=== PATIENT | female | born 1945 | race Caucasian/White ===

== ENCOUNTER 2021-02-18 10:43 | Outpatient (CLI) | payer MEDICARE, SELFPAY ==
--- NOTE | ~2021-02-18 | MR_ITS ---
EXAMINATION: MR lumbar spine wo/w con DATE: 02/18/2021 12:17 INDICATION: Lumbar spinal stenosis. TECHNIQUE: Magnetic resonance imaging (MRI) of the lumbar spine was performed without and with 20 mL MultiHance intravenous contrast. Sequences included sagittal T2-weighted FSE, sagittal T2-weighted FS FSE, and sagittal and axial T1-weighted FSE. Postcontrast sequences included axial T2-weighted FSE a nd axial and sagittal T1-weighted FS FSE. COMPARISON: Lumbar spine MRI 08/25/2017 FINDINGS: There is 7 mm anterolisthesis of L4 on L5. Vertebral body heights are normal. There is mild ly decreased disc height at L1-L2 and L2-L3, moderately decreased disc height at 3-L4 and L4-L5, and mildly decreased disc at L5-S1. There is ligamentum flavum hypertrophy at all lumbar disc levels. The distal spinal cord signal intensity is normal. The conus medullaris is at L1. The following disc lev els are specifically discussed: L1-L2: The disc is bulging. There is mild bilateral facet joint osteoarthritis. There is no neural fo raminal stenosis. There is mild central canal stenosis. L2-L3: The disc is bulging. There is severe right and mild left facet joint osteoarthritis. There is mild bilateral neural foraminal stenosis. There is mild central canal stenosis. L3-L4: The disc is bulging and has an annular fissure. There is severe bilateral facet joint osteoart hritis. There is moderate bilateral neural foraminal stenosis. There is mild central canal stenosis. There is moderate stenosis of the lateral recesses. L4-L5: The disc is bulging with superimposed right central extrusion. There is severe bilateral facet joint osteoarthritis. There is moderate right and mild left neural foraminal stenosis. There is mode rate central canal stenosis. L5-S1: The disc does not extend beyond the endplate margin. There is severe bilateral facet joint ost eoarthritis. There is mild right and moderate left neural foraminal stenosis. There is mild central c anal stenosis. IMPRESSION: 1. Moderate lumbar spondylosis, stable from 08/25/2017. Reviewed, dictated and finalized at location A.
[2021-02-18 11:38] LABS: Estimated Glomerular Filt Rate > 60
== END 2021-02-18 10:44 | disposition home or self-care (01) ==
PROVIDERS: PCP Family Medicine; Visit Provider Family Medicine
DX: M48.062 Spinal stenosis, lumbar region with neurogenic claudication (principal); M47.896 Other spondylosis, lumbar region
CPT/HCPCS: 72158; A9577

== ENCOUNTER 2022-02-04 17:20 | Emergency (ER) | payer MEDICARE, SELFPAY ==
--- NOTE | 2022-02-04 17:22 | ED.UPPEXIN ---
HPI - Extremity Injury (Upper) General Chief Complaint: Skin/Abscess/Foreign Body Stated Complaint: right arm swollen Time Seen by Provider: 02/04/22 17:23 History of Present Illness HPI narrative: Patient is a 76-year-old female who presents the urgent care with complaints of right arm swelling and pain. Patient states that it started on the forearm approximately 1 week ago and now has became larger and more painful. Patient states that several doctors since Tuesday have told her to get it checked out but none of them treated her infection. Patient states that if she is not on their schedule they will not treat her infection. States that she goes to Dr. Perri Cabrera and they would only see her for her urinary tract infection when she was there the other day. Patient is on 1 more day of Macrobid for her UTI. Patient denies of any fevers, nausea or vomiting. Patient has not done anything [id number] for her right arm pain and swelling. Denies of any trauma or injury to the arm. No other complaints. No acute distress noted. Patient aware of the plan of care. Some parts of this dictation were generated by voice recognition software and may contain typographical and/or grammatical inaccuracies. Related Data Home Medications Medication Instructions Recorded Confirmed warfarin 5 mg tablet 5 mg PO QTUTHSASU 06/28/19 02/04/22 atorvastatin 10 mg tablet 10 mg PO DAILY 02/17/21 02/04/22 diltiazem HCl 360 mg capsule,24 360 mg PO DAILY 02/17/21 02/04/22 hr,extended release oxycodone-acetaminophen 5 mg-325 1 tablet PO Q8H 10/23/21 02/04/22 mg tablet cyclobenzaprine 5 mg tablet 5 mg PO TID PRN Pain, Mild 11/17/21 02/04/22 Allergies Allergy/AdvReac Type Severity Reaction Status Date / Time Penicillins Allergy Mild Dyspnea / Verified 02/04/22 17:25 SOB Latex, Natural Rubber Allergy Unknown SKIN Verified 02/04/22 17:25 IRRITATION sulfamethoxazole AdvReac Unknown Unknown Verified 02/04/22 17:25 [From Bactrim] trimethoprim [From Bactrim] AdvReac Unknown Unknown Verified 02/04/22 17:25 Review of Systems Review of Systems: CONSTITUTIONAL: Denies fever, chills, or sweats. EYES: Denies visual changes, redness, or discharge. ENT: Denies rhinorrhea, congestion, sore throat, or otalgia. CARDIOVASCULAR: Denies chest pain, palpitations, or edema. RESPIRATORY: Denies cough or dyspnea. GASTROINTESTINAL: Denies abdominal pain, nausea, vomiting, or diarrhea. GENITOURINARY: Denies dysuria or hematuria. SKIN: Reports of redness and swelling to the right forearm MUSCULOSKELETAL: Denies back pain, joint pain, or myalgia. NEUROLOGIC: Denies headache, numbness, or weakness. All other systems reviewed are negative, except as documented in HPI. [facility] Past Medical History Medical History (Updated 02/04/22 @ 17:54 by BRITTANY Martinez) Asthma Laceration of finger Other custodial (current) drug therapy Primary osteoarthritis of both knees TIA (transient ischemic attack) Family History Family History Father Diabetes mellitus Hypertension, Onset Age: 80 Cerebrovascular accident, Onset Age: 80 Mother Family history of malignant neoplasm Family history of alcoholism Family history of lung cancer, Onset Age: 60 Family history of malignant neoplasm of esophagus, Onset Age: 60 Other Asthma Depression Family history of mental disorder Social History Social History Alcohol intake: never Substance use type: does not use Gender identity (if verbalized by the patient): Female Spiritual care concerns: No Comments At the time of my signature, I reviewed and agree with the nursing past medical, surgical, social, and family history. There is no relevant family history pertinent to the patient complaint. Exam Narrative: GENERAL: This is a well-nourished, well-developed
[2022-02-04 17:27] VITALS: BP 107/56; PULSE 89; RESP 18; TEMP 36.6; O2SAT 95
[2022-02-04 17:34] VITALS: BP 107/56; PULSE 89; RESP 18; TEMP 36.6; O2SAT 95
== END 2022-02-04 18:05 | disposition home or self-care (01) ==
PROVIDERS: Emergency Provider Nurse Practitioner Family; PCP Family Medicine
DX: L03.113 Cellulitis of right upper limb (principal); J45.909 Unspecified asthma, uncomplicated; M17.0 Bilateral primary osteoarthritis of knee; Z86.73 Personal history of transient ischemic attack (TIA), and cerebral infarction without residual deficits; Z79.01 Long term (current) use of anticoagulants
CPT/HCPCS: 99213; G0463

== ENCOUNTER 2022-06-24 14:54 | Outpatient (CLI) | payer MEDICARE, SELFPAY ==
[2022-06-24 19:18] LABS: Basophils Percent Auto 0.4 % (0.2-1.2); Eosinophils Absolute Auto 0.2 K/mm3 (0-0.3); Eosinophils Percent Auto 1.8 % (0-4.4); Hematocrit 38.4 % (37.0-47.0); Hemoglobin 11.9 g/dL (12.0-15.0); Immature Granulocyte Absolute 0.02 K/mm3 (0.00-0.031); Immature Granulocyte Percent A 0.2 % (0-0.5); Lymphocytes Absolute Auto 2.68 K/mm3 (0.9-3.2); Lymphocytes Percent Auto 26.1 % (18.3-44.2); Mean Corpuscular Hemoglobin 30.8 pg (26-34); Mean Corpuscular Volume 99.5 fl (80-100); Mean Platelet Volume 11.3 fl (7.4-10.4); Monocytes Absolute Auto 0.7 K/mm3 (0.1-0.6); Monocytes Percent Auto 7.1 % (2.6-8.5); Neutrophils Absolute Auto 6.6 K/mm3 (1.3-6.7); Neutrophils Percent Auto 64.4 % (45.5-73.1); Platelet Count Result 284 k/mm3 (150-375); Red Blood Count 3.86 M/mm3 (4.2-5.4); Red Cell Distribution Width 12.6 % (11.5-14.5); White Blood Count 10.3 K/mm3 (4.5-10.0)
[2022-06-24 19:24] LABS: Hemoglobin A1C 6.4 % (<5.7)
[2022-06-24 19:32] LABS: Alanine Aminotransferase 19 U/L (6-35); Albumin Level 4.3 g/dL (3.5-5.1); Alkaline Phosphatase 119 U/L (38-126); Anion Gap 12 mmol/L (8-16); Aspartate Amino Transferase 37 U/L (14-36); Bilirubin,Total 0.2 mg/dL (0.2-1.3); Blood Urea Nitrogen 20 mg/dL (7-17); Calcium 9.3 mg/dL (8.4-10.2); Carbon Dioxide 28 mmol/L (22-30); Chloride 103 mmol/L (98-107); Cholesterol 189 mg/dL (0-200); Estimated Glomerular Filt Rate > 60; Glucose 123 mg/dL (65-110); HDL Direct 72 mg/dL; Potassium 4.1 mmol/L (3.4-5.0); Sodium 143 mmol/L (137-145); Triglycerides 93 mg/dL (<150)
[2022-06-24 19:43] LABS: LDL Cholesterol Direct 66 mg/dL
[2022-06-28 17:04] LABS: Vitamin D 1,25 (OH)2 Total 19 pg/mL (18-72); Vitamin D2 1,25 (OH)2 <8 pg/mL; Vitamin D3 1,25 (OH)2 19 pg/mL
== END 2022-06-24 14:55 | disposition home or self-care (01) ==
PROVIDERS: PCP Family Medicine; Visit Provider Physician Assistant
DX: E78.2 Mixed hyperlipidemia (principal); F41.8 Other specified anxiety disorders; I10 Essential (primary) hypertension; I48.91 Unspecified atrial fibrillation; R53.83 Other fatigue; R73.03 Prediabetes; Z79.899 Other long term (current) drug therapy; E55.9 Vitamin D deficiency, unspecified; M25.559 Pain in unspecified hip
CPT/HCPCS: 36415; 80053; 80061; 82652; 83036; 84443; 85025

== ENCOUNTER 2022-07-05 16:28 | Outpatient (CLI) | payer MEDICARE, SELFPAY ==
[2022-07-05 17:34] LABS: SARS-CoV-2 RNA PCR Positive
== END 2022-07-05 16:29 | disposition home or self-care (01) ==
LOC: ANHLAB 16:31
PROVIDERS: PCP Family Medicine; Visit Provider Physician Assistant
DX: U07.1 COVID-19 (principal)
CPT/HCPCS: U0003; U0005

== ENCOUNTER 2022-08-30 12:12 | Outpatient (RCR) | payer MEDICARE, SELFPAY ==
[2022-06-24 19:28] LABS: INR 3.9; Prothrombin Time 37.1 Seconds (11.1-14.7)
[2022-06-28 19:10] LABS: INR 2.3; Prothrombin Time 24.2 Seconds (11.1-14.7)
[2022-07-20 19:33] LABS: INR 2.8; Prothrombin Time 28.9 Seconds (11.1-14.7)
[2022-08-30 17:07] LABS: INR 2.6; Prothrombin Time 26.6 Seconds (11.1-14.7)
== END 2022-09-22 23:59 | disposition home or self-care (01) ==
LOC: ANHGOSHLAB 12:12
PROVIDERS: PCP Family Medicine
DX: I48.91 Unspecified atrial fibrillation (principal); I10 Essential (primary) hypertension; E78.2 Mixed hyperlipidemia; E55.9 Vitamin D deficiency, unspecified; R73.03 Prediabetes; R53.83 Other fatigue; F41.8 Other specified anxiety disorders; Z79.899 Other long term (current) drug therapy
CPT/HCPCS: 36415; 80053; 80061; 82652; 83036; 84443; 85025; 85610

== ENCOUNTER 2022-10-07 14:27 | Outpatient (RCR) | payer MEDICARE, SELFPAY ==
[2022-10-07 19:46] LABS: INR 2.7; Prothrombin Time 27.7 Seconds (11.1-14.7)
== END 2023-01-05 23:59 | disposition home or self-care (01) ==
LOC: ANHGOSHLAB 14:27
PROVIDERS: PCP Family Medicine
DX: I48.91 Unspecified atrial fibrillation (principal)
CPT/HCPCS: 36415; 85610

== ENCOUNTER 2022-12-27 21:10 | Emergency (ER) | payer MEDICARE, SELFPAY ==
--- NOTE | ~2022-12-27 | XR_ITS ---
EXAM: XR shoulder LT min 2V, XR humerus LT DATE: 12/27/2022 22:03 HISTORY: Left arm pain . COMPARISON: None available. FINDINGS: Decreased mineralization. No fracture or dislocation. No lytic or blastic lesion. Mild AC joint and elbow osteoarthritis. Severe glenohumeral joint osteoarthritis. No erosion or periosteal ch herbie. Soft tissues within normal limits. IMPRESSION: No acute osseous finding the left shoulder or humerus. Reviewed, dictated and finalized at location K. IMPRESSION: No acute osseous finding the left shoulder or humerus.
[2022-12-27 21:16] VITALS: BP 144/53; PULSE 108; RESP 22; TEMP 37.3; O2SAT 96
[2022-12-27 23:19] VITALS: BP 137/62; PULSE 98; RESP 20; O2SAT 100
--- NOTE | 2022-12-27 23:51 | PC.NURSE ---
Pt approached desk and asks I'm leaving, is there something for me to sign? This RN informed pt that there is nothing for her to sign since she is leaving before she saw an ED provider. Instructed pt to return to ED if her pain worsens or she develops any new symptoms. Instructed pt to contact her PCP in the morning. Pt verbalized understanding and ambulated out of department with steady gait.
== END 2022-12-27 23:51 | disposition left against medical advice (07) ==
PROVIDERS: Emergency Provider Preventive Medicine Aerospace Medicine; PCP Family Medicine
DX: M79.602 Pain in left arm (principal)
CPT/HCPCS: 73030; 73060; 99199

== ENCOUNTER 2023-01-31 16:59 | Emergency (ER) | payer MEDICARE, SELFPAY ==
[2023-01-31 17:07] VITALS: BP 121/58; PULSE 87; RESP 16; TEMP 36.8; O2SAT 97
--- NOTE | 2023-01-31 17:26 | ED.SKABFB ---
HPI - Skin/Abscess/Foreign Bdy General Chief complaint: Skin/Abscess/Foreign Body Stated complaint: Laceration To Forehead History of Present Illness HPI narrative: Earlier this afternoon patient was stepping over her dog and dog woke up and she tripped and fell hitting her head on the kitchen floor. Patient denies any loss of consciousness the patient does have a laceration above her left eyebrow and patient does take a blood thinner daily. Patient denies any other injuries. Related Data Home Medications Medication Instructions Recorded Confirmed warfarin 5 mg tablet 5 mg PO QTUTHSASU 06/28/19 01/31/23 atorvastatin 10 mg tablet 10 mg PO DAILY 02/17/21 01/31/23 diltiazem HCl 360 mg capsule,24 360 mg PO DAILY 02/17/21 01/31/23 hr,extended release oxycodone-acetaminophen 5 mg-325 1 tablet PO Q8H 10/23/21 01/31/23 mg tablet Allergies Allergy/AdvReac Type Severity Reaction Status Date / Time Penicillins Allergy Mild Dyspnea / Verified 01/31/23 17:01 SOB Latex, Natural Rubber Allergy Unknown SKIN Verified 01/31/23 17:01 IRRITATION sulfamethoxazole AdvReac Unknown Unknown Verified 01/31/23 17:01 [From Bactrim] trimethoprim [From Bactrim] AdvReac Unknown Unknown Verified 01/31/23 17:01 Review of Systems Review of Systems: CONSTITUTIONAL: Denies chills, or sweats. Reports fever and generalized body aches EYES: Denies visual changes, redness, or discharge. ENT: Denies otalgia. Reports nasal congestion runny nose and sore throat CARDIOVASCULAR: Denies chest pain, palpitations, or edema. RESPIRATORY: Denies dyspnea. Reports occasional cough GASTROINTESTINAL: Denies abdominal pain, nausea, vomiting, or diarrhea. GENITOURINARY: Denies dysuria or hematuria. SKIN: Denies rash or itching. MUSCULOSKELETAL: Denies back pain, joint pain, or myalgia. Reports generalized body aches NEUROLOGIC: Denies headache, numbness, or weakness. PSYCHIATRIC: Denies anxiety or depression. 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 Primary osteoarthritis of both knees TIA (transient ischemic attack) Family History Family History Father Diabetes mellitus Hypertension, Onset Age: 80 Cerebrovascular accident, Onset Age: 80 Mother Family history of malignant neoplasm Family history of alcoholism Family history of lung cancer, Onset Age: 60 Family history of malignant neoplasm of esophagus, Onset Age: 60 Other Asthma Depression Family history of mental disorder Social History Social History Smoking status: Never smoker Alcohol intake: never Substance use: never Substance use type: does not use Lack of Transportation: No Lack of Food: Never True Current Housing: I Have Housing Concerned About Future Housing: No Difficulty Paying Gas/Electric Bills: No Difficulty Paying for Meds: No Currently Unemployed: No Education: High School Diploma/GED Difficulty w/ Childcare or Family Care: No Occupation/Education: retired Gender identity (if verbalized by the patient): Female Spiritual care concerns: No Comments At time of signature, agree with nursing past medical, surgical, social and family history. There is no relevant family history pertinent to the presenting complaint Exam Narrative: The patient is a well-developed, well-nourished in no acute distress. SKIN: Skin is warm and dry without erythema, swelling or exudate. There is good turgor. No tenting. HEAD: Atraumatic. Normocephalic. No temporal or scalp tenderness. 2 cm laceration above left eyebrow no bleeding at present EYES: Moist and bright. Sclera and conjunctivae normal. No discharge. PERRLA. Extraocular motions intact. Gross visual acuity intact. EARS: Pinna
== END 2023-01-31 17:31 | disposition short-term general hospital (02) ==
PROVIDERS: Emergency Provider Nurse Practitioner Family; PCP Family Medicine
DX: S09.90XA Unspecified injury of head, initial encounter (principal); S01.81XA Laceration without foreign body of other part of head, initial encounter; W01.0XXA Fall on same level from slipping, tripping and stumbling without subsequent striking against object, initial encounter; J45.909 Unspecified asthma, uncomplicated; M17.0 Bilateral primary osteoarthritis of knee; Z86.73 Personal history of transient ischemic attack (TIA), and cerebral infarction without residual deficits; Z79.01 Long term (current) use of anticoagulants
CPT/HCPCS: 99212; G0463

== ENCOUNTER 2023-01-31 18:02 | Emergency (ER) | payer MEDICARE, SELFPAY ==
--- NOTE | ~2023-01-31 | CT_ITS ---
EXAMINATION: CT brain wo con DATE: 01/31/2023 19:07 INDICATION: head injury . TECHNIQUE: Computed tomography (CT) of the head was performed without intravenous contrast. The mA wa s adjusted according to patient size. Iterative reconstruction technique was employed. The dose-lengt h product was 605.33 mGy-cm. COMPARISON: MR brain 04/02/2016. FINDINGS: No acute intracranial hemorrhage or extra-axial fluid collection. No hydrocephalus, mass, or herniation. No acute ischemic infarct. Unremarkable dural venous sinus attenuation. No acute osseous abnormality. The aerated spaces are clear. Mild atrophy and chronic white matter change. Minimal atherosclerotic intracranial calcification. IMPRESSION: No acute intracranial process. Reviewed, dictated and finalized at location K.
--- NOTE | ~2023-01-31 | CT_ITS ---
EXAMINATION: CT facial & cervical spine wo DATE: 01/31/2023 19:09 INDICATION: facial and neck pain TECHNIQUE: Computed tomography (CT) of the maxillofacial region and cervical spine was performed with out intravenous contrast. Automated exposure control and iterative reconstruction technique were empl oyed. The dose-length product was 305.03 mGy-cm. COMPARISON: None FINDINGS: CERVICAL: Vertebral Body Alignment: Intact. Grade 1 anterolistheses at C2-3 and C3-4. Grade 2 anterolisthesis a t C3 4-5 and C5-6. Craniocervical and atlantoaxial alignment: Moderate degenerative change. Alignment intact. Osseous structures/fracture: No evidence of a lytic or blastic process in the visualized spine. No e vidence of acute fracture. Bilateral facet fusion at C4-5. Cervical soft tissues: The paraspinal soft tissues planes are maintained. Degenerative changes: Multilevel severe degenerative disc disease and facet arthropathy. Multilevel s evere bilateral neural foraminal narrowing. No severe central canal narrowing.. FACE: Soft Tissues: No significant superficial soft tissue swelling. Facial bones: No acute fracture. No lytic or blastic process. Eyes: The globes are intact. The soft tissue planes of the orbits are maintained. Paranasal Sinuses: The visualized aerated spaces are clear. Foreign Bodies: No radiopaque foreign bodies. Other Findings: None. IMPRESSION: No acute fracture detected in the cervical spine. 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 No acute facial bone fracture. Reviewed, dictated and finalized at location K.
[2023-01-31 18:13] VITALS: BP 125/73; PULSE 85; RESP 16; TEMP 36.6; O2SAT 97
[2023-01-31] MEDS: LIDOCAINE HCL 1% LOCAL INJ 10 ML VIAL INFILTRATE (19:01)
--- NOTE | 2023-01-31 19:45 | ED.GENADULT ---
HPI - General Adult General Chief complaint: Wound/Laceration Stated complaint: head injury, from urgent care Time Seen by Provider: 01/31/23 18:35 History of Present Illness HPI narrative: 77-year-old female presented the emergency department for evaluation after having a head injury. Patient reports that she tripped over her dog and fell striking her face. Patient denied loss of consciousness. Patient reports that her tetanus is up-to-date. Related Data Home Medications Medication Instructions Recorded Confirmed warfarin 5 mg tablet 5 mg PO QTUTHSASU 06/28/19 01/31/23 atorvastatin 10 mg tablet 10 mg PO DAILY 02/17/21 01/31/23 diltiazem HCl 360 mg capsule,24 360 mg PO DAILY 02/17/21 01/31/23 hr,extended release oxycodone-acetaminophen 5 mg-325 1 tablet PO Q8H 10/23/21 01/31/23 mg tablet Allergies Allergy/AdvReac Type Severity Reaction Status Date / Time Penicillins Allergy Mild Dyspnea / Verified 01/31/23 17:01 SOB Latex, Natural Rubber Allergy Unknown SKIN Verified 01/31/23 17:01 IRRITATION sulfamethoxazole AdvReac Unknown Unknown Verified 01/31/23 17:01 [From Bactrim] trimethoprim [From Bactrim] AdvReac Unknown Unknown Verified 01/31/23 17:01 Review of Systems Review of Systems: All systems reviewed & are unremarkable except as noted in HPI and below PMFSH Past Medical History Medical History Asthma Laceration of finger Other chcf (current) drug therapy Primary osteoarthritis of both knees TIA (transient ischemic attack) Family History Family History Father Diabetes mellitus Hypertension, Onset Age: 80 Cerebrovascular accident, Onset Age: 80 Mother Family history of malignant neoplasm Family history of alcoholism Family history of lung cancer, Onset Age: 60 Family history of malignant neoplasm of esophagus, Onset Age: 60 Other Asthma Depression Family history of mental disorder Social History Social History Smoking status: Never smoker Alcohol intake: never Substance use: never Substance use type: does not use Lack of Transportation: No Lack of Food: Never True Current Housing: I Have Housing Concerned About Future Housing: No Difficulty Paying Gas/Electric Bills: No Difficulty Paying for Meds: No Currently Unemployed: No Education: High School Diploma/GED Difficulty w/ Childcare or Family Care: No Occupation/Education: retired Gender identity (if verbalized by the patient): Female Spiritual care concerns: No Exam Narrative: APPEARANCE: Well appearing, no pain, no distress, well-nourished. HEAD: normocephalic, atraumatic. EYES: PERRLA/EOMI, conjunctivae clear. NOSE: Normal no drainage EARS:TMS clear with good light reflex. THROAT: Pharynx clear, no exudate. NECK: Supple. No adenopathy, no masses. RESPIRATORY: Airway patent, respirations nonlabored. Clear to auscultation bilaterally, no rales, rhonchi, wheezing. CARDIOVASCULAR: Regular rate and rhythm without murmurs rubs or gallops. ABDOMINAL: Soft, nontender, nondistended, normal bowel sounds MUSCULOSKELETAL: Moves all extremities. Strength/ROM intact, No edema, No calf tenderness. NEURO: Alert. Cranial nerves II through XII intact. Good gait. Good coordination SKIN: 3 cm laceration over left eyebrow Course Course Emergency Course: 77-year-old female presented emerged department for evaluation for a head injury and facial laceration. Patient had negative head face and cervical spine CTs. Patient's tetanus was up-to-date. Patient's laceration was repaired as described in the procedure note. Both patient and family were updated on the results of the work-up and wound care. All questions concerns were addressed and patient family were comfortable with the plan for discharge and cl
== END 2023-01-31 20:05 | disposition home or self-care (01) ==
PROVIDERS: Emergency Provider Emergency Medicine; PCP Family Medicine
DX: S01.81XA Laceration without foreign body of other part of head, initial encounter (principal); Z79.01 Long term (current) use of anticoagulants; Z79.891 Long term (current) use of opiate analgesic; Z86.73 Personal history of transient ischemic attack (TIA), and cerebral infarction without residual deficits; W01.0XXA Fall on same level from slipping, tripping and stumbling without subsequent striking against object, initial encounter
CPT/HCPCS: 12013; 70450; 70486; 72125; 99284

== ENCOUNTER 2023-02-03 14:23 | Outpatient (RCR) | payer MEDICARE, SELFPAY ==
[2022-11-19 18:33] LABS: INR 2.4; Prothrombin Time 25.2 Seconds (11.1-14.7)
[2023-01-06 18:28] LABS: INR 1.8; Prothrombin Time 22.4 Seconds (11.1-14.7)
[2023-02-03 19:54] LABS: INR 2.2; Prothrombin Time 25.9 Seconds (11.1-14.7)
== END 2023-02-17 23:59 | disposition home or self-care (01) ==
LOC: ANHGOSHLAB 14:23
PROVIDERS: PCP Family Medicine
DX: I48.92 Unspecified atrial flutter (principal)
CPT/HCPCS: 36415; 85610

== ENCOUNTER 2023-03-25 15:50 | Outpatient (CLI) | payer MEDICARE, SELFPAY ==
[2023-03-25 18:34] LABS: INR 1.4; Prothrombin Time 17.7 Seconds (11.1-14.7)
== END 2023-03-25 15:51 | disposition home or self-care (01) ==
LOC: ANHGOSHLAB 15:52
PROVIDERS: PCP Family Medicine
DX: I48.92 Unspecified atrial flutter (principal)
CPT/HCPCS: 36415; 85610

== ENCOUNTER 2023-04-28 07:18 | Outpatient (CLI) | payer MEDICARE, SELFPAY ==
--- NOTE | ~2023-04-28 | US_ITS ---
EXAMINATION: US venous doppler LE RT DATE: 04/28/2023 08:16 INDICATION: Right lower limb swelling TECHNIQUE: Gustafson scale images without and with compression and Doppler images of the right lower extre mity veins were obtained. COMPARISON: None FINDINGS: The right common femoral vein, profunda femoral vein, femoral vein, popliteal vein, peronea l trunk, posterior tibial veins, and greater saphenous vein are patent. IMPRESSION: 1. Patent right lower extremity veins. No evidence of deep venous thrombosis. Reviewed, dictated and finalized at location D.
[2023-04-28 09:08] LABS: Basophils Absolute Auto 0.1 K/mm3 (0.0-0.1); Basophils Percent Auto 0.6 % (0.2-1.2); Eosinophils Absolute Auto 0.2 K/mm3 (0-0.3); Hematocrit 38.6 % (37.0-47.0); Hemoglobin 11.9 g/dL (12.0-15.0); Immature Granulocyte Absolute 0.02 K/mm3 (0.00-0.031); Immature Granulocyte Percent A 0.2 % (0-0.5); Lymphocytes Absolute Auto 2.42 K/mm3 (0.9-3.2); Lymphocytes Percent Auto 29.8 % (18.3-44.2); Mean Corpuscular HGB Conc 30.8 g/dl (32-36); Mean Corpuscular Hemoglobin 31.8 pg (26-34); Mean Corpuscular Volume 103.2 fl (80-100); Mean Platelet Volume 10.7 fl (7.4-10.4); Monocytes Absolute Auto 0.6 K/mm3 (0.1-0.6); Neutrophils Absolute Auto 4.8 K/mm3 (1.3-6.7); Neutrophils Percent Auto 59.4 % (45.5-73.1); Platelet Count Result 267 k/mm3 (150-375); Red Blood Count 3.74 M/mm3 (4.2-5.4); Red Cell Distribution Width 12.6 % (11.5-14.5); White Blood Count 8.1 K/mm3 (4.5-10.0)
[2023-04-28 09:19] LABS: Alanine Aminotransferase 19 U/L (6-35); Albumin Level 4.3 g/dL (3.5-5.1); Alkaline Phosphatase 112 U/L (38-126); Anion Gap 5 mmol/L (8-16); Aspartate Amino Transferase 27 U/L (14-36); Bilirubin,Total 0.3 mg/dL (0.2-1.3); Blood Urea Nitrogen 18 mg/dL (7-17); Calcium 9.2 mg/dL (8.4-10.2); Carbon Dioxide 28 mmol/L (22-30); Chloride 104 mmol/L (98-107); Cholesterol 193 mg/dL (0-200); Estimated Glomerular Filt Rate > 60; Glucose 98 mg/dL (65-110); HDL Direct 84 mg/dL; Hemoglobin A1C 6.1 % (<5.7); Potassium 4.1 mmol/L (3.4-5.0); Sodium 137 mmol/L (137-145); Triglycerides 71 mg/dL (<150)
[2023-04-28 09:30] LABS: LDL Cholesterol Direct 73 mg/dL
[2023-04-28 10:23] LABS: Hepatitis C Virus Antibody Negative (Negative)
== END 2023-04-28 07:19 | disposition home or self-care (01) ==
PROVIDERS: Family Medicine; PCP Family Medicine; Visit Provider Family Medicine
DX: R22.41 Localized swelling, mass and lump, right lower limb (principal); Z79.01 Long term (current) use of anticoagulants; F41.8 Other specified anxiety disorders; Z79.899 Other long term (current) drug therapy; E55.9 Vitamin D deficiency, unspecified; E78.2 Mixed hyperlipidemia; I10 Essential (primary) hypertension; Z11.59 Encounter for screening for other viral diseases; R73.03 Prediabetes; I48.91 Unspecified atrial fibrillation; E53.9 Vitamin B deficiency, unspecified
CPT/HCPCS: 36415; 80053; 80061; 82607; 83036; 85025; 86803; 93971

== ENCOUNTER 2023-07-13 13:30 | Outpatient (RCR) | payer MEDICARE, SELFPAY ==
[2023-04-22 19:16] LABS: INR 2.5; Prothrombin Time 29.2 Seconds (11.1-14.7)
[2023-05-19 18:59] LABS: INR 3.7
[2023-06-03 18:51] LABS: INR 2.3
[2023-07-13 19:22] LABS: INR 1.3; Prothrombin Time 17.3 Seconds (11.1-14.7)
== END 2023-07-21 23:59 | disposition home or self-care (01) ==
LOC: ANHGOSHLAB 13:30
PROVIDERS: Physician Assistant; PCP Family Medicine
DX: I48.92 Unspecified atrial flutter (principal); I10 Essential (primary) hypertension; E55.9 Vitamin D deficiency, unspecified; R73.03 Prediabetes; E78.2 Mixed hyperlipidemia; Z79.899 Other long term (current) drug therapy
CPT/HCPCS: 36415; 84443; 85610

== ENCOUNTER → 2023-10-10 13:09 | Outpatient (CLI) | payer MEDICARE, SELFPAY ==
--- NOTE | ~2023-10-10 | MR_ITS ---
EXAMINATION: MR orbits face neck wo con DATE: 10/10/2023 14:46 INDICATION: Soft tissue density in the medial inferior aspect of left orbit. TECHNIQUE: Magnetic resonance imaging (MRI) of the orbits was performed without intravenous contrast. COMPARISON: Head CT 01/31/2023, brain MRI 04/02/2016 FINDINGS: In the inferomedial left orbit, there is a 9 mm mass of increased T2-weighted signal intens ity. The mass abuts the inferior aspect of the medial rectus muscle at the distal myotendinous juncti on. The extraocular muscles are normal. The optic nerves are normal. There is leftward deviation of t he nasal septum. IMPRESSION: 1. 9 mm mass in the inferomedial left orbit, stable from 04/02/16. This finding is most likely a heman gioma or lymphangioma. Reviewed, dictated and finalized at location E. REPAIRER IMPRESSION: 1. 9 mm mass in the inferomedial left orbit, stable from 04/02/16. This finding is most likely a hemangioma or lymphangioma.
== END ==
PROVIDERS: Visit Provider Family Medicine
DX: H57.89 Other specified disorders of eye and adnexa (principal); R93.0 Abnormal findings on diagnostic imaging of skull and head, not elsewhere classified; M79.89 Other specified soft tissue disorders
CPT/HCPCS: 70540

== ENCOUNTER 2023-10-24 15:15 | Outpatient (RCR) | payer MEDICARE, SELFPAY ==
[2023-08-11 18:59] LABS: INR 2.8; Prothrombin Time 31.3 Seconds (11.1-14.7)
[2023-09-29 19:31] LABS: INR 2.9; Prothrombin Time 33.1 Seconds (11.1-14.7)
[2023-10-24 19:32] LABS: INR 2.7; Prothrombin Time 30.7 Seconds (11.1-14.7)
== END 2023-11-09 23:59 | disposition home or self-care (01) ==
LOC: ANHGOSHLAB 15:15
PROVIDERS: PCP Family Medicine
DX: I48.92 Unspecified atrial flutter (principal)
CPT/HCPCS: 36415; 85610

== ENCOUNTER 2023-10-27 13:54 | Outpatient (RCR) | payer MEDICARE, SELFPAY ==
--- NOTE | 2023-10-27 15:35 | STOPEVDC ---
Assessment and note entered by Tere Waller PRESS LOADER Thank you for referring Rossy Muller to [facility].? An evaluation has been completed. No further treatment is needed. Evaluation Information Assessment Status Evaluation Reported Pain Level Pain Score 0: Self Report Assessment ST Clinical Summary BEDSIDE SWALLOW EVALUATION Patient reports that she goes to her cousin's house for a meal on Sundays, her cousin noticed that patient has been complaining that food becomes stuck in her throat. When this occurs, patient reported that she feels that it if the bolus moves up, it would enter her airway and she would suffocate. If she waits long enough the feeling subsides, and it will clear but if she eats again too soon, it comes back. Patient also reported a rare to occasional feeling of food hanging up in the area of the esophagus but mostly feels it hangs up in her throat. When asked about using a liquid wash to clear pooled material, she stated that she feels the water just sits in the throat and does not do anything. She denied liquid spilling back into the mouth after taking a sip to clear. She reports that when she was younger, she had panic attacks, would have a dream that she was being choked and she would awaken and feel as if she were choking and she wonders if her difficulty swallowing is related to panic attacks. When asked about her vocal cords, patient stated that she feels her vocal cords are fine, that she can yell and speak and that she never is hoarse or has other signs of vocal cord dysfunction. Today the patient consumed justo crackers and water with no evidence of aspiration and no reports of food hanging up in the throat. When instructed to monitor her swallowing difficulties, i.e. a pattern, such as certain foods causing more trouble, patient reported the only pattern she has noticed is when she is consuming meals with her cousin when they are eating out. Therapist asked her about talking with food in her mouth and patient did admit to that bad habit but did state that she always cuts her food into small pieces and eats slowly.
== END 2023-10-28 12:39 | disposition home or self-care (01) ==
LOC: ANHST 13:54
PROVIDERS: PCP Family Medicine; Visit Provider Family Medicine
DX: J38.3 Other diseases of vocal cords (principal)
CPT/HCPCS: 92524

== ENCOUNTER 2023-11-07 14:10 | Outpatient (CLI) | payer MEDICARE, SELFPAY ==
--- NOTE | ~2023-11-07 | MR_ITS ---
EXAMINATION: MR lumbar spine wo con DATE: 11/07/2023 15:14 INDICATION: Low back pain. TECHNIQUE: Magnetic resonance imaging (MRI) of the lumbar spine was performed without intravenous con trast. Sequences included sagittal T2-weighted FSE, sagittal T2-weighted FS FSE, sagittal T1-weighted FSE, and axial T2-weighted FSE. COMPARISON: None currently available. FINDINGS: There is 3 degrees levocurvature of lumbar spine. There is 6 mm anterolisthesis of L4 on L5 and 3 mm retrolisthesis of L5 on S1. There is mild chronic anterior wedging of T12 and L1 vertebral bodies. There is mildly decreased disc at L1-L2 and L2-L3, moderately decreased disc height at L3-L4, severely decreased disc height at L4-L5, and moderately decreased disc height at L5-S1. The distal s karen cord signal intensity is normal. The conus medullaris is at L1-L2. The following disc levels ar e specifically discussed: L1-L2: The disc is bulging. There is severe bilateral facet joint osteoarthritis. There is mild bilat eral neural foraminal stenosis. There is mild central canal stenosis. L2-L3: The disc is bulging. There is severe right and mild left facet joint osteoarthritis. There is mild bilateral neural foraminal stenosis. There is mild central canal stenosis. L3-L4: The disc is bulging and has an annular fissure. There is severe bilateral facet joint osteoart hritis. There is moderate bilateral neural foraminal stenosis. There is mild central canal stenosis. L4-L5: The disc is bulging and has an annular fissure. There is severe bilateral facet joint osteoart hritis. There is moderate right and mild left neural foraminal stenosis. There is moderate central ca nal stenosis. L5-S1: The disc is bulging. There is severe bilateral facet joint osteoarthritis. There is mild right and moderate left neural foraminal stenosis. There is mild central canal stenosis. IMPRESSION: 1. Severe lumbar spondylosis. Reviewed, dictated and finalized at location A.
== END 2023-11-07 14:11 ==
LOC: GOSHIMG 14:12
PROVIDERS: PCP Family Medicine; Visit Provider Nurse Practitioner Family
DX: M47.896 Other spondylosis, lumbar region (principal)
CPT/HCPCS: 72148

== ENCOUNTER 2023-12-19 08:37 | Outpatient (CLI) | payer MEDICARE, SELFPAY ==
[2023-12-19 10:07] LABS: INR 1.1; Prothrombin Time 14.8 Seconds (11.1-14.7)
== END 2023-12-19 08:38 | disposition home or self-care (01) ==
PROVIDERS: PCP Family Medicine; Visit Provider Pain Medicine Pain Medicine
DX: Z79.01 Long term (current) use of anticoagulants (principal)
CPT/HCPCS: 36415; 85610

== ENCOUNTER 2024-01-13 16:16 | Outpatient (NON) | payer MEDICARE, SELFPAY | END 2024-01-13 16:17 | disposition home or self-care (01) | LOC: ANHGOSHLAB 16:17 | PROVIDERS: PCP Family Medicine; Visit Provider Student in an Organized Health Care Education/Training Program | DX: R39.9 Unspecified symptoms and signs involving the genitourinary system (principal) | CPT/HCPCS: 87086; 87088 ==

== ENCOUNTER 2024-02-22 14:15 | Outpatient (RCR) | payer MEDICARE, SELFPAY ==
[2024-02-22 20:04] LABS: INR 1.8; Prothrombin Time 21.6 Seconds (11.1-14.7)
== END 2024-05-22 23:59 | disposition home or self-care (01) ==
LOC: ANHGOSHLAB 14:15
PROVIDERS: PCP Family Medicine
DX: I48.92 Unspecified atrial flutter (principal)
CPT/HCPCS: 36415; 85610

== ENCOUNTER 2024-03-28 12:21 | Outpatient (CLI) | payer MEDICARE, SELFPAY ==
--- NOTE | ~2024-03-28 | XR_ITS ---
EXAMINATION: XR chest 2V 03/28/2024 12:42 INDICATION: Dyspnea PROCEDURE: 2 view chest COMPARISON: No prior studies for comparison. FINDINGS: The lungs are clear. The cardiomediastinal silhouette is within normal limits. There are no pleural effusions. There is no pneumothorax suspected. IMPRESSION: 1: NO ACUTE CARDIOPULMONARY DISEASE. Reviewed, dictated and finalized at location B.
== END 2024-03-28 12:22 ==
PROVIDERS: PCP Family Medicine; Visit Provider Family Medicine
DX: J39.8 Other specified diseases of upper respiratory tract (principal)
CPT/HCPCS: 71046

== ENCOUNTER 2024-04-05 11:02 | Outpatient (CLI) | payer MEDICARE, SELFPAY ==
[2024-04-05 19:32] LABS: Alanine Aminotransferase 16 U/L (6-35); Albumin Level 3.8 g/dL (3.5-5.1); Alkaline Phosphatase 99 U/L (38-126); Anion Gap 9 mmol/L (4-12); Aspartate Amino Transferase 43 U/L (14-36); Bilirubin,Total 0.1 mg/dL (0.2-1.3); Blood Urea Nitrogen 18 mg/dL (7-17); Carbon Dioxide 29 mmol/L (22-30); Chloride 100 mmol/L (98-107); Cholesterol 143 mg/dL (0-200); Estimated Glomerular Filt Rate > 60; Glucose 124 mg/dL (65-110); HDL Direct 52 mg/dL; Potassium 4.1 mmol/L (3.4-5.0); Sodium 138 mmol/L (137-145); Triglycerides 77 mg/dL (<150)
[2024-04-05 19:44] LABS: Hemoglobin A1C 6.9 % (<5.7); LDL Cholesterol Direct 53 mg/dL
== END 2024-04-05 11:03 | disposition home or self-care (01) ==
LOC: ANHGOSHLAB 11:04
PROVIDERS: PCP Family Medicine; Visit Provider Family Medicine
DX: I10 Essential (primary) hypertension (principal); R73.03 Prediabetes; R41.3 Other amnesia
CPT/HCPCS: 36415; 80053; 80061; 82607; 83036; 85610

== ENCOUNTER 2024-04-10 11:32 | Outpatient (RCR) | payer MEDICARE, SELFPAY ==
[2024-04-05 19:31] LABS: Prothrombin Time 59.2 Seconds (11.1-14.7)
[2024-04-05 19:50] LABS: INR 6.7
[2024-04-10 15:01] LABS: INR 1.4; Prothrombin Time 17.5 Seconds (11.1-14.7)
== END 2024-07-04 23:59 | disposition home or self-care (01) ==
LOC: ANHGOSHLAB 11:32
PROVIDERS: PCP Family Medicine
DX: I48.92 Unspecified atrial flutter (principal)
CPT/HCPCS: 36415; 85610

== ENCOUNTER 2024-07-04 14:07 | Outpatient (CLI) | payer MEDICARE, SELFPAY | END 2024-07-04 14:08 | disposition home or self-care (01) | PROVIDERS: PCP Family Medicine; Visit Provider Student in an Organized Health Care Education/Training Program | DX: R39.9 Unspecified symptoms and signs involving the genitourinary system (principal) | CPT/HCPCS: 87086 ==

== ENCOUNTER 2024-07-04 14:10 | Outpatient (RCR) | payer MEDICARE, SELFPAY ==
[2024-05-31 18:55] LABS: INR 3.2; Prothrombin Time 33.5 Seconds (11.1-14.7)
[2024-07-04 20:31] LABS: INR 2.1; Prothrombin Time 23.6 Seconds (11.1-14.7)
== END 2024-08-29 23:59 | disposition home or self-care (01) ==
LOC: ANHGOSHLAB 14:10
PROVIDERS: PCP Family Medicine
DX: I48.92 Unspecified atrial flutter (principal); R39.9 Unspecified symptoms and signs involving the genitourinary system
CPT/HCPCS: 36415; 85610; 87086

== ENCOUNTER 2024-07-19 18:21 | Emergency (ER) | payer MEDICARE, SELFPAY ==
--- NOTE | ~2024-07-19 | CT_ITS ---
EXAMINATION: CT cervical spine wo con DATE: 07/19/2024 21:01 INDICATION: Head injury. TECHNIQUE: Computed tomography (CT) of the cervical spine was performed without intravenous contrast. Automated exposure control and iterative reconstruction technique were employed. The dose-length pro duct was 172.73 mGy-cm. COMPARISON: CT cervical spine 01/31/2023 FINDINGS: There is kyphosis of cervical spine. There is 3 mm anterolisthesis of C4 on C5 and C5 on C6 and 2 mm retrolisthesis of C6 on C7. Vertebral body heights are normal. There is mildly decreased di sc height at C4-C5, severely decreased disc height at C5-C6 and C6-C7, and moderately decreased disc height at C7-T1. The following disc levels are specifically discussed: C2-C3: There is severe left uncovertebral joint osteoarthritis. There is severe bilateral facet joint osteoarthritis. There is mild right and moderate left neural foraminal stenosis. There is no central canal stenosis. C3-C4: There is mild right and severe left uncovertebral joint osteoarthritis. There is severe bilate ral facet joint osteoarthritis. There is mild right and moderate left neural foraminal stenosis. Ther e is mild central canal stenosis. C4-C5: There is ankylosis of the uncovertebral joints with mild hypertrophy. There is ankylosis of th e facet joints with severe hypertrophy. There is mild right and moderate left neural foraminal stenos is. There is mild central canal stenosis. C5-C6: There is severe bilateral uncovertebral joint osteoarthritis. There is severe bilateral facet joint osteoarthritis. There is moderate right and mild left neural foraminal stenosis. There is mild central canal stenosis. C6-C7: There is severe bilateral uncovertebral joint osteoarthritis. There is severe bilateral facet joint osteoarthritis. There is mild right and moderate left neural foraminal stenosis. There is mild central canal stenosis. C7-T1: There is severe right and mild left uncovertebral joint osteoarthritis. There is severe left f acet joint osteoarthritis. There is ankylosis of right facet joint with severe hypertrophy. There is moderate right and mild left neural foraminal stenosis. There is no central canal stenosis. IMPRESSION: 1. No fracture. 2. Severe cervical spondylosis. Reviewed, dictated and finalized at location A. WORKER
--- NOTE | ~2024-07-19 | CT_ITS ---
EXAMINATION: CT brain wo con DATE: 07/19/2024 21:01 INDICATION: Head injury. TECHNIQUE: Computed tomography (CT) of the head was performed without intravenous contrast. The mA wa s adjusted according to patient size. Iterative reconstruction technique was employed. The dose-lengt h product was 681.00 mGy-cm. COMPARISON: Head CT 01/31/2023 FINDINGS: There is no intracranial hemorrhage, acute infarction, or abnormal intracranial mass lesion . The ventricles are normal in size. The paranasal sinuses are clear. The orbits are normal. The mast oid air cells are normal. There is cerumen in the external auditory canals. IMPRESSION: 1. Normal brain. Reviewed, dictated and finalized at location A. STAMPER IMPRESSION: 1. Normal brain.
[2024-07-19 18:27] VITALS: BP 108/54; PULSE 61; RESP 18; TEMP 36.6; O2SAT 100
--- NOTE | 2024-07-19 21:13 | ED.FALL ---
HPI - Fall General Chief Complaint: Fall Stated Complaint: FALL Time Seen by Provider: 07/19/24 20:34 History of Present Illness HPI Narrative: 78-year-old female with a past medical history of chronic neck pain, atrial fibrillation on Coumadin. Today she presents to the emergency department for evaluation at the request of her primary care provider after falling and striking her head last night. Patient states that she slipped and fell on the cold white ground outside and was too weak to get herself up into the car. She laid on the ground for about an hour or 2 until a passerby was able to pick her up. She did not lose consciousness but does note that she is having some pain in the back of her neck and head. She states her pain in the neck is somewhat worse than her normal baseline but she has no worsening stiffness. No vision changes, nausea, vomiting, chest pain, shortness a breath. She states that she went to bed okay and woke up feeling all right but culture doctor to get recommendations and they referred her to the ED. Related Data Home Medications ?Medication ?Instructions ?Recorded ?Confirmed ?Last Taken ?Type warfarin 5 mg tablet 5 mg PO QTUTHSASU 06/28/19 06/28/24 Unknown History diltiazem HCl 360 mg capsule,24 360 mg PO DAILY 02/17/21 06/28/24 Unknown History hr,extended release oxycodone-acetaminophen 5 mg-325 1 tablet PO Q8H 10/23/21 06/28/24 Unknown History mg tablet Allergies Allergy/AdvReac Type Severity Reaction Status Date / Time Penicillins Allergy Mild Dyspnea / Verified 06/28/24 16:21 SOB Latex, Natural Rubber Allergy Unknown SKIN Verified 06/28/24 16:21 IRRITATION sulfamethoxazole (From AdvReac Unknown Unknown Verified 06/28/24 16:21 Bactrim) trimethoprim (From Bactrim) AdvReac Unknown Unknown Verified 06/28/24 16:21 Review of Systems Review of Systems: As reviewed above in HPI [facility] Past Medical History Medical History Tear of biceps muscle Laceration of finger Other [facility] drug therapy Primary osteoarthritis of both knees TIA (transient ischemic attack) Family History Family History Father Diabetes mellitus Hypertension, Onset Age: 80 Cerebrovascular accident, Onset Age: 80 Mother Family history of malignant neoplasm Family history of alcoholism Family history of lung cancer, Onset Age: 60 Family history of malignant neoplasm of esophagus, Onset Age: 60 Other Asthma Depression Family history of mental disorder Social History Social History Smoking status: Never smoker Alcohol intake: never Substance use: never Substance use type: does not use Lack of Transportation: No Lack of Food: Never True Current Housing: I Have Housing Concerned About Future Housing: No Difficulty Paying Gas/Electric Bills: No Difficulty Paying for Meds: No Currently Unemployed: No Education: High School Diploma/GED Difficulty w/ Childcare or Family Care: No Occupation/Education: retired Gender identity (if verbalized by the patient): Female Spiritual care concerns: No Exam Narrative: GENERAL: [Well-appearing, well-nourished, and in no acute distress.] HEAD: [Normocephalic, atraumatic.] EYES: [PERRLA and EOMI.] ENT: Nares clear, no rhinorrhea or epistaxis. Mucous membranes moist. No hematoma formation over the posterior neck or scalp NECK: Supple. Some tenderness to palpation of the left-sided paraspinal muscles without any cervical spinal tenderness midline, range of motion at baseline, approximately 60 degrees of movement left and right which is at baseline. CHEST: [Clear to auscultation. No respiratory distress.] HEART: [Regular rate and rhythm]. No murmur heard. [Normal peripheral pulses.] ABDOMEN: [Soft, nondistended], [nontender], [No rigidity or guarding] EXTREMITIES: Normal range of motion. [No edema.] SKIN: Warm, dry, no rash. NEURO: [No focal deficits]. Alert and oriented [x3.] PSYCH: [Normal mood and affect.] Course Vital Signs Vital signs: Vital Signs Temperature 36.6 C 07/19/24 18:27 Pulse Rate 61 07/19/24 18:27 Respiratory Rate 18 07/19/24 18:27 Blood Pressure 108/54 L 07/19/24 18:27 Pulse Oximetry 100 07/19/24 18:27 Temperature 36.6 C 07/19/24 18:27 Pulse Rate 61 07/19/24 18:27 Respiratory Rate 18 07/19/24 18:27 Blood Pressure 108/54 L 07/19/24 18:27 Pulse Oximetry 100 07/19/24 18:27 MDM - Fall MDM Narrative Medical decision making narrative: 78-year-old female that takes blood thinners for atrial fibrillation presenting to the emergency department for closed head injury and following yes night. She slipped on the wet ground and fell striking the back of her head. She is complaining of some minor neck stiffness but has normal range of motion at this time. No neuropathy, weakness, sensory changes or any neurological complaints at this time. She has normal reassuring vital signs with a blood pressure concerns, tachycardia, fever, hypoxia. She has some minor paraspinal muscle tenderness on the left side of the cervical spine but no step-offs deformities or any midline tenderness. Given her age and risk factors a CT of the head and CT of the cervical spine was ordered this time she was given Robaxin for pain control. Patient had improvement her pain control on re-evaluation and her images were independently viewed by myself and also interpreted by Radiology. No acute fracture subluxations or intracranial pathology. She is stable for discharge home at this time with regular PCP follow-up in given return precautions and discharge instructions at this time. Medical Records Attestation: I reviewed the patient's medical records. Imaging Data Attestation: I personally reviewed and interpreted this imaging study as follows: My impression: Impressions Head CT 07/19/24 21:01 IMPRESSION: 1. Normal brain. Cervical Spine CT 07/19/24 21:03 IMPRESSION: 1. No fracture. 2. Severe cervical spondylosis. Discharge Plan Discharge Clinical Impression: CHI (closed head injury), Cervical muscle strain Patient Disposition: Home, Self-Care Condition: Stable Instructions: Antibiotic Form Additional Instructions: His CT scans are reassuring with no injuries. Follow-up with your regular doctor on outpatient basis continue taking [id number] pain medications and your home pain medications for any residual pains. Return with any new or worsening concerns at any time. Patient Language: Citizen Of [place] Prescriptions: No Action diltiazem HCl 360 mg capsule,extended release 24 hr 360 mg PO DAILY oxycodone-acetaminophen 5-325 mg tablet 1 tablet PO Q8H mirabegron [Myrbetriq] 25 mg tablet extended release 24 hr 25 mg PO DAILY Qty: 30 5RF tizanidine 4 mg tablet 4 mg PO TID PRN (Reason: muscle spasticity) Qty: 60 0RF warfarin 5 mg tablet 5 mg PO QTUTHSASU atorvastatin 10 mg tablet 10 mg PO DAILY Qty: 90 3RF nortriptyline 50 mg capsule See Rx Instructions .ROUTE .COMPLEX Qty: 180 1RF Dose Instruction: TAKE 3 CAPSULES BY MOUTH EVERY NIGHT AT BEDTIME Rx Instructions: TAKE 2 CAPSULES BY MOUTH EVERY NIGHT AT BEDTIME cholecalciferol (vitamin D3) 1,250 mcg (50,000 unit) capsule See Rx Instructions .ROUTE .COMPLEX Qty: 12 3RF Dose Instruction: TAKE 1 CAPSULE BY MOUTH EVERY WEEK Rx Instructions: TAKE 1 CAPSULE BY MOUTH EVERY WEEK sertraline 100 mg tablet See Rx Instructions .ROUTE .COMPLEX Qty: 180 1RF Dose Instruction: TAKE 2 TABLETS BY MOUTH EVERY DAY Rx Instructions: TAKE 2 TABLETS BY MOUTH EVERY DAY lisinopril 20 mg tablet See Rx Instructions .ROUTE .COMPLEX Qty: 90 1RF Dose Instruction: TAKE 1 TABLET BY MOUTH DAILY Rx Instructions: TAKE 1 TABLET BY MOUTH DAILY diphenoxylate-atropine 2.5-0.025 mg tablet 1 tablet PO BID Qty: 60 5RF Follow-up/Referrals: Perri Cabrera MD [Primary Care Provider] - Time of Disposition: 21:49
[2024-07-19] MEDS: methocarbamoL 500 MG TABLET 1000 MG PO (21:30)
[2024-07-19 22:49] VITALS: BP 117/82; PULSE 98; RESP 17; O2SAT 97
== END 2024-07-19 22:10 | disposition home or self-care (01) ==
PROVIDERS: Emergency Provider Student in an Organized Health Care Education/Training Program; PCP Family Medicine
DX: S09.90XA Unspecified injury of head, initial encounter (principal); S16.1XXA Strain of muscle, fascia and tendon at neck level, initial encounter; I48.91 Unspecified atrial fibrillation; M17.0 Bilateral primary osteoarthritis of knee; Z86.73 Personal history of transient ischemic attack (TIA), and cerebral infarction without residual deficits; Z79.01 Long term (current) use of anticoagulants; Z79.899 Other long term (current) drug therapy; M47.812 Spondylosis without myelopathy or radiculopathy, cervical region; W01.0XXA Fall on same level from slipping, tripping and stumbling without subsequent striking against object, initial encounter
CPT/HCPCS: 70450; 72125; 99284; A9270

== ENCOUNTER 2024-11-20 16:05 | Outpatient (CLI) | payer MEDICARE, SELFPAY ==
--- NOTE | ~2024-11-20 | XR_ITS ---
CHEST RADIOGRAPH, PA AND LATERAL CLINICAL HISTORY: R59.0 - Localized enlarged lymph nodes . COMPARISON: 03/28/2024 TECHNIQUE: PA and lateral views of the chest. FINDINGS Prominence of the right hilum, for which lymphadenopathy is suspected. The remainder of the cardiomediastinal silhouette is otherwise unremarkable. The lungs are clear. IMPRESSION: No focal infiltrate or effusion. Right hilar prominence, possibly representing lymphadenopathy Reviewed, dictated and finalized at location A.
== END 2024-11-20 16:06 | disposition home or self-care (01) ==
LOC: GOSHIMG 16:08
PROVIDERS: Visit Provider Student in an Organized Health Care Education/Training Program
DX: R59.0 Localized enlarged lymph nodes (principal)
CPT/HCPCS: 71046

== ENCOUNTER 2024-11-21 14:16 | Outpatient (CLI) | payer MEDICARE, SELFPAY ==
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
--- OUTSIDE RECORDS SUMMARY | 2024-11-21 15:34 | XMS_ITS | Encounter Summary ---
Author Organization [facility] Address [address] [place] [address] Phone Care Team Providers Care Core Stacker Name Role Phone Perri Cabrera MD Primary Care Provider + Encounter Details Date Type Department Care Team (Latest Contact Info) Description 02/23/2024 Anticoagulation Visit [facility] Cardiology [address] [facility] Medical Office [address] [place] [address] Toni Wills MD [address] [address] Atrial flutter, unspecified type (HCC) (Primary Dx) Social History Tobacco Use Types Packs/Day Years Used Date Smoking Tobacco: Never Smokeless Tobacco: Never Alcohol Use Standard Drinks/Week Comments No 0 [...] on file Legal Sex Female 6:39 AM CAPACITOR TESTER Gender Identity Not on file Sexual Orientation Not on file Occupation Industry Job Start Date Job End Date Retired Not on file 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
--- OUTSIDE RECORDS SUMMARY | 2024-11-21 15:34 | XMS_ITS | Encounter Summary ---
Author Organization [facility] Address [address] [place] [address] Phone Care Team Providers Care Home Insurance Agent Name Role Phone Perri Cabrera MD Primary Care Provider + Encounter Details Date Type Department Care Team (Latest Contact Info) Description 08/11/2022 Orders Only [facility] Tori Cheatham RN Social History Tobacco Use Types Packs/Day Years Used Date Smoking Tobacco: Never Smokeless Tobacco: Never Alcohol Use Standard Drinks/Week Comments No 0 (1 standard drink = 0.6 oz pur e alcohol) Comments No Sex and Gender Information Value Date Recorded Sex Assigned at Not on file Legal Sex Female 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 Gender Identity Not on file Sexual Orientation Not on file Occupation Industry Job Start Date Job End Date Retired Not on file 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
--- OUTSIDE RECORDS SUMMARY | 2024-11-21 15:34 | XMS_ITS | Encounter Summary ---
Author Organization [facility] Address [address] [place] [address] Phone Care Team Providers Care Licensed Land Surveyor Name Role Phone Perri Cabrera MD Primary Care Provider + Encounter Details Date Type Department Care Team (Late st Contact Info) Description 08/11/2018 Telephone [facility] [facility] [address] [place] [address] [place] [address] Erica Quintanilla, MPH Social History Tobacco Use Types Packs/Day Years Used Date Smoking Tobacco: Never Smokeless Tobacco: Never Alcohol Use Standard Drinks/Week Comments No 0 (1 standard drink = 0.6 oz pur e alcohol) Comments No Sex and Gender Information Value Date Recorded Sex Assigned at Not on file Legal Sex Female 6:39 AM PRICING DIRECTOR Gender Identity Not on file Sexual Orientation Not on file 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
--- OUTSIDE RECORDS SUMMARY | 2024-11-21 15:34 | XMS_ITS | Clinical Summary ---
Author Organization [facility] Address [address] [place] [address] Phone Care Team Providers Care Procedure Rn Name Role Phone Perri Cabrera MD Primary Care Provider Allergies Active Allergy Reactions Criticality Noted Date Comments Amoxicillin-Pot Clavulanate Hives High 04/01/20 12 Tetracycline Hives High 04/01/2012 Medications nortriptyline (PAMELOR) 50 mg capsule Take 150 mg by mouth daily at bedtime. Active warfarin (COUMADIN) 5 mg tabletIndicatio ns:Warfarin SOD Take 5 mg by mouth daily at bedtime. Active sertraline (ZOLOFT) 100 mg tablet Take 200 mg by mouth daily at bedtime. Active metFORMIN (GLUCOPHAGE) 500 mg tabletIndicatio ns:Takes 1 Tab at night Take 500 mg by mouth daily at bedtime. Active lisinopril (PRINIVIL) 20 mg tablet Take 20 mg by mouth daily at bedtime. Active simvastatin (ZOCOR) 10 mg tablet Take 10 mg by mouth late in the day. Active diltiaZEM (DILACOR XR) 240 mg Extended Release capsuleIndicati ons:Cartia (Diltiazem 240mg XT) Take 240 mg by mouth daily at bedtime. Active oxyCODONE-aceta minophen (PERCOCET) 5-325 mg tablet Take 1 Tablet by mouth every 8 hours as needed for Pain, Moderate. Active polyethylene glycol 3350 (MIRALAX) 17 gram/dose Powder Take 1 SCOOP (17 Grams) by mouth daily Dissolve in 8 ounces of fluid and drink entire liquid. 527 Gram 04/07/2018 Active Active Problems Problem Noted Date Diagnosed Date Syncope 04/04/2018 Atrial fibrillation 04/04/2018 Abdominal pain 04/04/2018 Metabolic encephalopathy 04/04/2018 intermediate current use of anticoagulant 8 Bronchial asthma 04/04/2018 Chronic hypertension 04/04/2018 Left leg numbness 04/04/2018 Hematuria 04/04/2018 Pyuria 04/04/2018 Hyponatremia 04/04/2018 BRADEN (acute kidney injury) 04/04/2018 Anemia, chronic disease 04/04/2018 Renal cyst 1.1cm L kidney 04/04/2018 Overview (04/04/2018): 04/04/[address] Scan results Mass of uterine adnexa 11.7 x 9.4cm with mass ef fect 04/04/2018 Overview (04/04/2018): 04/04/[address] Scan result, extending from posterior aspect of uterus, mild R hydroureteronephrosis Sepsis 04/04/2018 Spinal stenosis 04/04/2018 Hx SBO 04/04/2018 Family History Medical History Relation Name Comments Healthy Daughter 1 Healthy Daughter 2 Diabetes Father Hypertension Father Stroke Father Alcohol abuse Mother Esophageal Cancer Mother Healthy Son Relation Name Status Comments Daughter 1 Alive Daughter 2 Alive Father (Age 85) Maternal Grandfather Maternal Grandmother Mother Paternal Grandfather Paternal Grandmother Son Alive Social History Tobacco Use Types Packs/Day Years Used Date Smoking Tobacco: Never Smokeless Tobacco: Never Alcohol Use Standard Drinks/Week Comments No 0 (1 standard drink = 0.6 oz pur e alcohol) Comments Unknown Sex and Gender Information Value Date Recorded Sex Assigned at Not on file 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 Gender Identity Not on file Sexual Orientation Not on file Last Filed Vital Signs Vital Sign Reading Time Taken Comments Blood Pressure 131/63 04/08/2018 8:14 AM CDT Pulse 110 04/08/2018 8:14 AM CDT Temperature 36.6 C (97.9 F) 04/08/2018 8:14 AM CDT Respiratory Rate 18 04/08/2018 8:14 AM CDT Oxygen Saturation 97% 04/08/2018 8:14 AM CDT Inhaled Oxygen Concentration - - Weight 99.8 kg (220 lb) 04/01/2012 12:40 PM CDT Height 167.6 cm (5' 6 ) 04/01/2012 12:40 PM CDT Body Mass Index 35.51 04/01/2012 12:40 PM CDT Plan of Treatment Health Maintenance Due Date Last Done Comments DTAP/TDAP/TD VACCINES (1 - Tdap) 1965 PNEUMOCOCCAL VACCINE 50+ YEARS (1 of 2 - PCV) 11/14/18 66 ZOSTER VACCINE (1 of 2) 1996 OSTEOPOROSIS SCREENING 11/15/2011 RSV VACCINE (60+ or ) (1 - 1-dose 75+ series) 2021 INFLUENZA VACCINE (#1) 2024 Insurance MEDICARE PART A AND B [employer] PPO Advance Directives For more information, please contact: [phone] * Full Code (Latest Code Status on File) Date Activated Date Inactivated Comments 04/04/2018 10:59 AM 04/08/2018 6:25 PM Care Teams Procedure Rn Relationship Specialty Start Date End Date Perri Cabrera MD PCP - General Family Practice 04/01/12
--- OUTSIDE RECORDS SUMMARY | 2024-11-21 15:34 | XMS_ITS | Encounter Summary ---
Author Organization [facility] Address [address] [place] [address] Care Team Providers Care Tandem Mill Operator Name Role Phone Perri Cabrera MD Primary Care Provider [phone] Encounter Details Date Type Department Care Team (Late st Contact Info) Description 07/28/2001 Outpatient Historical Division of Neurology [address] [address] Gurvinder Chapa MD [address] [place] [address] Social History Tobacco Use Types Packs/Day Years Used Date Smoking Tobacco: Never Assessed Comments Unknown Sex and Gender Information Value Date Recorded Sex Assigned at Not on file Legal Sex Female 4:53 AM POLITICAL 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
--- OUTSIDE RECORDS SUMMARY | 2024-11-21 15:34 | XMS_ITS | Encounter Summary ---
Author Organization [facility] Address [address] 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
--- OUTSIDE RECORDS SUMMARY | 2024-11-21 15:34 | XMS_ITS | Encounter Summary ---
Author Organization [facility] Address [address] [place] [address] Care Team Providers Care Marketing And Communications Officer Name Role Phone Perri Cabrera MD Primary Care Provider [phone] Encounter Details Date Type Department Care Team (Latest Contact Info) Description 07/28/2001 Outpatient Historical [facility] Gurvinder Cisse MD [address] [place] [address] TRANSIENT CEREBRAL ISCHEMIA NOS (Primary Dx) Social History Tobacco Use Types Packs/Day Years Used Date Smoking Tobacco: Never Assessed Comments Unknown Sex and Gender Information Value Date Recorded Sex Assigned at Not on file 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
--- OUTSIDE RECORDS SUMMARY | 2024-11-21 15:34 | XMS_ITS | Clinical Summary ---
Author Organization [facility] Address [address] [place] [address] Care Team Providers Care Public Health Specialist Name Role Phone Perri Cabrera MD Primary Care Provider + Allergies Active Allergy Reactions Criticality Noted Date [...] (06/21/2018): Added automatically from request for surgery [id number] Adnexal cyst 05/23/2018 Overview (05/23/2018): Added automatically from request for surgery [id number] Mass of uterine adnexa 05/23/2018 Overview (08/23/2018): Added automatically from request for surgery [id number] Overview: 04/04/[address] Scan result, extending [...] discomfort 10/04/2014 Bronchial asthma 08/06/2013 Apnea 11/21/2012 [facility] current use of anticoagulant 3 Atrial flutter 11/20/2012 Atrial paroxysmal tachycardia 11/08/2012 Atrial fibrillation 11/08/2012 Chronic hypertension 11/08/2012 Abdominal pain S/P exploratory laparotomy Ileus Encounters Date Type Department Care Team Description 10/17/2024 Orders Only [facility] Scanning, Provider 10/17/2024 Anticoagulation Telephone Call [facility] [address] [place] [address] Rachelle Esquivel MD Atrial flutter, unspecified type (HCC) (Primary Dx) 10/15/2024 Orders Only [facility] Tori Cheatham RN 09/12/[address] Advanced Medicine [address]th [place] [address] [place] [phone] Toni Wills MD 09/07/2024 Anticoagulation Telephone Call [facility] Cardiology [facility] [facility] 8th [place] [address] [place] [address] Toni Wills MD Atrial flutter, unspecified type (HCC) (Primary Dx) from Last 3 Months Immunizations Immunization Administration Dates Next Due Influenza, Trivalent, High D ose, Split, Preservative Free, Intramuscular 07/18/2018 Surgical History Surgery Date Site/Laterality Comments BREAST LUMPECTOMY fatty tumor removed CHOLECYSTECTOMY 08/08/1978 - 08/07/1979 APPENDECTOMY 08/08/1978 - 08/07/1979 OTHER SURGICAL HISTORY 08/08/1979 - 08/07/1980 adhesion removed ROTATOR CUFF REPAIR 05/08/2017 - 06/07/2017 with bicep surgery COLECTOMY 08/08/1970 - 08/07/1971 Bowel obstruction COLONOSCOPY 06/08/2018 poor prep-hx colon polyps Medical History Medical History Date Comments A-fib (HCC) Arthritis Ovarian cyst Asthma Chronic pain DDD Pelvic mass PAT 06/20/18 for expl. lap KOFFI BSO 07/07/18 Family History Medical History Relation Name Comments Diabetes Father Family history of diabetes mellitus - (Added by TW Conv) Hypertension Father Family history of hypertension - (Added by TW Conv) Stroke Father Family history of stroke - (Added by TW Conv) Cancer Mother Family history of cancer - (Added by TW Conv) Relation Name Status Comments Father Mother Social History Tobacco Use Types Packs/Day Years [...] on file Legal Sex Female 6:39 AM MANAGER OF PMO Gender Identity Not on file Sexual Orientation Not on file Occupation Industry Job Start Date Job End Date Retired Not on file Not on file Not on file 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 Not on file Not on file Not on file Obstetrics History Para Term AB IAB SAB Ectopic Multiple Livin g Live Births 4 3 3 1 3 Date Outcome GA Total Labor Labor/2nd/3rd Weight Sex Type Anes PTL Bri A1 A5 Name Clin Term Term Term AB Last Filed Vital Signs Vital Sign Reading Time Taken Comments Blood Pressure 103/60 10/06/2023 11:06 AM MANAGER OF PMO Pulse 72 10/06/2023 11:06 AM MANAGER OF PMO Temperature 36.7 C (98 F) 08/16/2023 6:00 AM MANAGER OF PMO Respiratory Rate 17 08/16/2023 12:30 PM MANAGER OF PMO Oxygen Saturation 97% 10/06/2023 11:06 AM MANAGER OF PMO Inhaled Oxygen Concentration - - Weight 81.7 kg (180 lb 1.9 oz) 10/06/2023 11:06 AM MANAGER OF PMO Height 162.6 cm (5' 4 ) 10/06/2023 11:06 AM MANAGER OF PMO Body Mass Index 30.92 10/06/2023 11:06 AM MANAGER OF PMO Plan of Treatment Health Maintenance Due Date Last Done Comments Depression Screening 1945 Fall Risk Assessment 1945 Hepatitis C Screening 1945 Osteoporosis Screening-Bone Density Scan 1945 DTaP/Tdap/Td Vaccine (1 - Tdap) 1957 Hepatitis B Screening 1964 Zoster Vaccine (1 of 2) 1996 Well Visit 65+ 11/15/2011 Pneumococcal vaccine 65+ (2 of 2 - PCV) 02/17/2022 0 02/17/2021 Covid-19 Vaccine (3 - season) 2024, 10/03/2020 Influenza Vaccine (Season Ended) 2025 05/21/20 20, 07/18/2018 Colon Cancer Screening-CT Colonography Discontinued , 06/08/2018 Colon Cancer Screening-Colonoscopy Discontinued 2017, 06/08/2018 Colon Cancer Screening-DNA Stool Discontinued 07/06/20 18, 06/08/2018 Colon Cancer Screening-FIT Discontinued 07/06/2018, Colon Cancer Screening-FOBT Discontinued 07/06/2018, 1 08/08/2017 Colon Cancer Screening-Sigmoidoscopy Discontinued 06/09, 06/08/2018 Colorectal Cancer Screening Discontinued Procedures Procedure Name Priority Date/Time Associated Diagnosis Comments SCAN - LABS 10/17/2024 PROTIME-INR Routine 10/15/2024 SCAN - LABS 10/15/2024 PROTIME-INR Routine 09/07/2024 COLONOSCOPY 07/06/2018 1:00 PM MANAGER OF PMO from Last 3 Months or Most Recently Relevant to Health Maintenance Results * SCAN - LABS (10/17/2024) Provider Scanning Final Result * SCAN - LABS (10/15/2024) us Tori Cheatham RN Final Result * (ABNORMAL) Protime-INR (10/15/2024) INR 3.30(A) 0.90 - 1.10 EXTERNAL LAB Blood 10/15/2024 Historical Provider LAB BLOOD ORDERABLES Susan l Result EXTERNAL LAB * (ABNORMAL) Protime-INR (09/07/2024) INR 3.60(A) 0.90 - 1.10 EXTERNAL LAB Blood us Historical Provider LAB BLOOD ORDERABLES Edit ed Result - Final EXTERNAL LAB * COLONOSCOPY (07/06/2018 1:00 PM MANAGER OF PMO) Anatomical Region Laterality Modality Other Narrative Procedure Note Manan Mascorro MD - 07/06/2018 1:00 PM CST ENDOSCOPY LAB Patient Name: Rossy Shaver Procedure Date: 07/06/2018 1:00 PM Date of : 1945 Admit Type: Outpatient Age: 72 Gender: Female Attending MD: Manan Mascorro M.D. Room: [place] [address] Note Status: Addendum Procedure Date No Time: [...] the physician, the nurse,the anesthesiologist and the tea and spice supervisor in thepre-procedure area in the procedure room. [...] Thescope was passed under direct vision. The [id number] introduced through the anus and advanced to the thececum, identified by the ileocecal valve. The colonoscopy was performed with moderate difficulty due to inadequatebowel prep. The patient tolerated the procedure well. The quality of the bowel preparation was evaluated usingthe BBPS ([place] Bowel Preparation Scale) with scores of: Right [...] prep. Manan Mascorro M.D. 07/13/2018 1:26:46 PM us Manan Mascorro MD ENDOSCOPY PROCEDURES Edited Resu lt - Final from Last 3 Months or Most Recently Relevant to Health Maintenance Insurance MEDICARE [facility] MEDICARE [facility] MEDICARE [facility] Member Subscriber Plan / Payer (Ef fective 2018-Present) Name:Rossy Shaver Relation to Subscriber:Self Name:ROSSY SHAVER Payer ID:[id number] (NAIC) Type:[facility] Address: [address] MEDICARE [facility] MEDICARE [facility] Advance Directives For more information, please contact: [phone] * Full Code (Latest Code Status on File) Date Activated Date Inactivated Comments 07/07/2018 12:04 PM 07/18/2018 5:53 PM * Full Code Date Activated Date Inactivated Comments 07/06/2018 12:17 PM 07/06/2018 5:14 PM Care Teams Public Health Specialist Relationship Specialty Start Date End Date Perri Cabrera MD PCP - General 10/06/16
--- OUTSIDE RECORDS SUMMARY | 2024-11-21 15:34 | XMS_ITS | Clinical Summary ---
Author Organization [facility] Address [address] [place] [place] [address] Care Team Providers Care Roaster Supervisor Name Role Phone Perri Cabrera MD Primary Care Provider [phone] Source Comments [facility],non-owned Affiliates and Associated Physician Practices is amultiple site organization consisting of ambulatory clinics and hospital sitesin [place], [place], [place] and [place]. This disclosure is being madepursuant to the Care Everywhere program and may not contain all information available regarding this patient. Last updated 18.[employer] [employer] [facility] Allergies No known active allergies Medications * Be aware that medications may not be up to date on this document. Alwaysverify current medications with the patient. sertraline (ZOLOFT) 100 MG tablet Take 100 mg by mouth once daily. Active lisinopril (PRINIVIL;ZESTRI L) 5 MG tablet Take 5 mg by mouth once daily. Active simvastatin (ZOCOR) 40 MG tablet Take 40 mg by mouth at bedtime. Active Isosorbide Mononitrate 30 MG TB24 Take by mouth. Active Albuterol Sulfate (PROAIR HFA IN) Inhale by mouth. Active NORTRIPTYLINE HCL PO Take by mouth. Active Diphenoxylate-At ropine (LOMOTIL PO) Take by mouth. Active ibuprofen (MOTRIN) 600 MG tablet Take 600 mg by mouth every 6 hours as needed. Active hydrocodone-acet aminophen (VICODIN) 5-500 MG tablet Take 1 Tab by mouth every 4 hours as needed. Active sertraline (ZOLOFT) 100 MG tablet Take 200 mg by mouth at bedtime. Active Active Problems No known active problems Family History Medical History Relation Name Comments Asthma Father Diabetes Father Hypercholesterolemia Father Hypertension Father Stroke Father Arthritis - Osteo Mother Arthritis - Rheumatoid Mother Asthma Mother Cancer Mother Migraine Mother Relation Name Status Comments Father Mother Social History Tobacco Use Types Packs/Day Years Used Date Smoking Tobacco: Never Alcohol Use Standard Drinks/Week Comments Yes 0 (1 standard drink = 0.6 oz pur e alcohol) Comments Unknown Sex and Gender Information Value Date Recorded Sex Assigned at Not on file Legal Sex Female 10:49 AM CONTINUOUS MINING MACHINE LODE MINER Gender Identity Not on file Sexual Orientation Not on file 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 Not on file Not on file Last Filed Vital Signs Vital Sign Reading Time Taken Comments Blood Pressure 158/95 09/25/2012 1:24 PM CONTINUOUS MINING MACHINE LODE MINER Pulse 97 09/25/2012 1:24 PM CONTINUOUS MINING MACHINE LODE MINER Temperature 36.8 C (98.3 F) 09/25/2012 9:58 AM CONTINUOUS MINING MACHINE LODE MINER Respiratory Rate 20 09/25/2012 9:58 AM CONTINUOUS MINING MACHINE LODE MINER Oxygen Saturation 98% 09/25/2012 1:24 PM CONTINUOUS MINING MACHINE LODE MINER Inhaled Oxygen Concentration - - Weight 102.1 kg (225 lb) 09/25/2012 9:58 AM CONTINUOUS MINING MACHINE LODE MINER Height 167.6 cm (5' 6 ) 09/25/2012 9:58 AM CONTINUOUS MINING MACHINE LODE MINER Body Mass Index 36.32 09/25/2012 9:58 AM CONTINUOUS MINING MACHINE LODE MINER Plan of Treatment Health Maintenance Due Date Last Done Comments BONE DENSITY TESTING 1945 MEDICARE AWV 12 MONTHS 1945 HEPATITIS C SCREENING 11/09/1964 DTAP/TDAP/TD VACCINES (1 - Tdap) 1965 PNEUMOCOCCAL VACCINE 50+ (1 of 1 - PCV) 1996 ZOSTER VACCINE (1 of 2) 1996 Respiratory Syncytial Virus (RSV) Vaccine Pt: or over 60 yrs (1 - 1-dose 75+ series) 2021 COVID-19 VACCINE (1 - 2023-2 5 season) 2024 DEPRESSION SCREENING 08/08/2024 INFLUENZA VACCINE (Season Ended) 2025 HEPATITIS B VACCINE Aged Out No longe r eligible based on patient's age to complete this topic HIB VACCINE Aged Out No longer eligi ble based on patient's age to complete this topic HPV VACCINE Aged Out No longer eligi ble based on patient's age to complete this topic MENINGOCOCCAL (Group B) VACC INE SHARED DECISION-MAKING Aged Out No longer eligibl e based on patient's age to complete this topic MENINGOCOCCAL GROUPS A/C/Y/W VACCINE Aged Out No longer eligible b ased on patient's age to complete this topic Insurance MEDICARE [facility] Care Teams Roaster Supervisor Relationship Specialty Start Date End Date Perri Cabrera MD [address] [place] [address] PCP - General 09/22/12
--- OUTSIDE RECORDS SUMMARY | 2024-11-21 15:34 | XMS_ITS | Encounter Summary ---
Author Organization [facility] Address 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
--- OUTSIDE RECORDS SUMMARY | 2024-11-21 15:34 | XMS_ITS | Encounter Summary ---
Author Organization [facility] Address [address] [place] [address] Phone Care Team Providers Care Combustion Engineer Name Role Phone Perri Cabrera MD Primary Care Provider + Encounter Details Date Type Department Care Team (Latest Contact Info) Description 03/25/2023 Orders Only [facility] Tori Cheatham RN Social History Tobacco Use Types Packs/Day Years Used Date Smoking Tobacco: Never Smokeless Tobacco: Never Alcohol Use Standard Drinks/Week Comments No 0 (1 standard drink = 0.6 oz pur e alcohol) Comments No Sex and Gender Information Value Date Recorded Sex Assigned at Not on file Legal Sex Female 6:39 AM CONTACT ACID PLANT OPERATOR Gender Identity Not on file Sexual Orientation Not on file Occupation Industry Job Start Date Job End Date Retired Not on file 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
--- OUTSIDE RECORDS SUMMARY | 2024-11-21 15:34 | XMS_ITS | Encounter Summary ---
Author Organization [facility] Address [address] Kumar: Epic Prelude ADT DANA KUMAR [address] Care Team Providers Care Toddler Lead Teacher Name Role Phone Perri Cabrera MD Primary Care Provider [phone] Encounter Details Date Type Department Care Team (Late st Contact Info) Description 03/15/1990 Outpatient Historical Basilio Hernandes Social History Tobacco Use Types Packs/Day Years Used Date Smoking Tobacco: Never Assessed Comments Unknown Sex and Gender Information Value Date Recorded Sex Assigned at Not on file Legal Sex Female 4:53 AM PATTERNMAKER ALL AROUND Gender Identity Not on file Sexual Orientation Not on file documented as of this encounter Plan of Treatment Not on file documented as of this encounter Visit Diagnoses Not on filedocumented in this encounter Care Teams Toddler Lead Teacher Relationship Specialty Start Date End Date Perri Cabrera MD PCP - General Family Practice 04/01/12 documented as of this encounter
--- OUTSIDE RECORDS SUMMARY | 2024-11-21 15:34 | XMS_ITS | Encounter Summary ---
Author Organization [facility] Address [address] [place] [address] Phone Care Team Providers Care Technical Rep Name Role Phone Perri Cabrera MD Primary Care Provider + Encounter Details Date Type Department Care Team (Late st Contact Info) Description 07/04/2019 Telephone [facility] [address] [facility] Advanced Medicine 8th [place] [address] [place] [address] Guadalupe Campbell MD [address] [place] [address] Social History Tobacco Use Types Packs/Day Years Used Date Smoking Tobacco: Never Smokeless Tobacco: Never Alcohol Use Standard Drinks/Week Comments No 0 (1 standard drink = 0.6 oz pur e alcohol) Comments No Sex and Gender Information Value Date Recorded Sex Assigned at Not on file 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
[2024-11-21 19:54] LABS: Basophils Absolute Auto 0.1 K/mm3 (0.0-0.1); Basophils Percent Auto 0.5 % (0.2-1.2); Eosinophils Absolute Auto 0.2 K/mm3 (0-0.3); Eosinophils Percent Auto 1.5 % (0-4.4); Hematocrit 35.5 % (37.0-47.0); Hemoglobin 11.3 g/dL (12.0-15.0); Immature Granulocyte Absolute 0.02 K/mm3 (0.00-0.031); Immature Granulocyte Percent A 0.2 % (0-0.5); Lymphocytes Absolute Auto 2.37 K/mm3 (0.9-3.2); Lymphocytes Percent Auto 24.2 % (18.3-44.2); Mean Corpuscular HGB Conc 31.8 g/dl (32-36); Mean Corpuscular Hemoglobin 30.8 pg (26-34); Mean Corpuscular Volume 96.7 fl (80-100); Mean Platelet Volume 10.7 fl (7.4-10.4); Monocytes Absolute Auto 0.6 K/mm3 (0.1-0.6); Monocytes Percent Auto 6.1 % (2.6-8.5); Neutrophils Absolute Auto 6.6 K/mm3 (1.3-6.7); Neutrophils Percent Auto 67.5 % (45.5-73.1); Platelet Count Result 264 k/mm3 (150-375); Red Blood Count 3.67 M/mm3 (4.2-5.4); Red Cell Distribution Width 12.9 % (11.5-14.5); White Blood Count 9.8 K/mm3 (4.5-10.0)
[2024-11-21 20:03] LABS: Alanine Aminotransferase 15 U/L (6-35); Albumin Level 3.8 g/dL (3.5-5.1); Alkaline Phosphatase 117 U/L (38-126); Anion Gap 5 mmol/L (4-12); Aspartate Amino Transferase 37 U/L (14-36); Bilirubin,Total 0.2 mg/dL (0.2-1.3); Blood Urea Nitrogen 21 mg/dL (7-17); Carbon Dioxide 27 mmol/L (22-30); Chloride 104 mmol/L (98-107); Cholesterol 164 mg/dL (0-200); Estimated Glomerular Filt Rate > 60; Glucose 115 mg/dL (65-110); HDL Direct 83 mg/dL; Potassium 4.5 mmol/L (3.4-5.0); Sodium 136 mmol/L (137-145); Triglycerides 68 mg/dL (<150)
[2024-11-21 20:14] LABS: LDL Cholesterol Direct 55 mg/dL
[2024-11-21 20:34] LABS: Thyroid Stimulating Hormone 0.965 uIU/mL (0.465-4.680)
[2024-11-21 20:48] LABS: Creatinine Urine 59.2 mg/dL
[2024-11-21 20:52] LABS: MALB Creatinine Ratio 15.9 mg/g (0-30); Microalbumin Urine Random 9.4 mg/L (0-16.7)
== END 2024-11-21 14:17 | disposition home or self-care (01) ==
LOC: ANHGOSHLAB 14:18
PROVIDERS: Visit Provider Student in an Organized Health Care Education/Training Program
DX: E11.9 Type 2 diabetes mellitus without complications (principal); I10 Essential (primary) hypertension; E78.2 Mixed hyperlipidemia; R63.4 Abnormal weight loss
CPT/HCPCS: 36415; 80053; 80061; 82043; 83036; 84443; 85025

== ENCOUNTER 2024-11-21 14:20 | Outpatient (RCR) | payer MEDICARE, SELFPAY ==
[2024-09-05 19:39] LABS: INR 3.6; Prothrombin Time 36.5 Seconds (11.1-14.7)
[2024-10-15 19:18] LABS: INR 3.3; Prothrombin Time 34.1 Seconds (11.1-14.7)
[2024-11-21 20:18] LABS: INR 2.3; Prothrombin Time 25.3 Seconds (11.1-14.7)
== END 2024-12-04 23:59 | disposition home or self-care (01) ==
LOC: ANHGOSHLAB 14:20
PROVIDERS: PCP Family Medicine
DX: I48.92 Unspecified atrial flutter (principal); Z79.899 Other long term (current) drug therapy
CPT/HCPCS: 36415; 80053; 80061; 82043; 83036; 84443; 85025; 85610

== ENCOUNTER 2024-11-21 14:55 | Outpatient (CLI) | payer MEDICARE, SELFPAY ==
--- NOTE | ~2024-11-21 | CT_ITS ---
CT scan of the Neck Technique: 2.5 mm axial scans were obtained through the neck without IV contrast administration. Can nal and sagittal reconstructions of the neck were obtained. Dose reduction technique was used on this scan by utilizing automated exposure control and iterative reconstruction technique. The dose-length product (DLP) was 332.04 mGy-cm. Clinical History: Lymphadenopathy COMPARISON: 07/19/2024 Findings: There is no evidence of any significant cervical lymphadenopathy. Several small, nonenlarged jugulo- digastric and posterior cervical lymph nodes are noted bilaterally. Parapharyngeal spaces appear norm al bilaterally. The parotid and submandibular glands appear normal. Air distended, somewhat patulous esophagus present, unchanged. The pharyngeal mucosal spaces appear normal. No soft tissue masses are seen in the neck. The thyroid gland appears normal. Images of the lung apices reveal no abnormalities. There is extensi ve degenerative change of the cervical spine. Impression: No lymphadenopathy evident. No acute abnormality seen. Reviewed, dictated and finalized at [facility]. Impression: No lymphadenopathy evident. No acute abnormality seen.
--- NOTE | ~2024-11-21 | CT_ITS ---
CLINICAL INDICATION: Remote history of a fall COMPARISON: None. TECHNIQUE: Multiple contiguous axial images of the abdomen and pelvis were performed without the admi nistration of intravenous contrast The dose-length product (DLP) was 826.48 mGy-cm. Automated exposure control and iterative reconstruction technique were employed. FINDINGS/OBSERVATIONS: Visualized lower thorax: The bilateral lung bases are clear. The heart is of normal size, without pericardial effusion. Small hiatal hernia is present. Liver: The liver demonstrates homogeneous attenuation and is not enlarged. Gallbladder and biliary system: The gallbladder is surgically absent. Pancreas: Limited evaluation of the pancreas secondary to the lack of intravenous contrast. Spleen: The spleen demonstrates homogeneous attenuation and is not enlarged. Kidneys: Subcentimeter focus of decreased attenuation within the upper pole of the left kidney, too s mall to characterize for which follow-up ultrasound examination is recommended. The remainder of the bilateral kidneys are otherwise unremarkable, without hydronephrosis or renal ca lculi. Adrenal glands: Unremarkable. Gastrointestinal tract: Fecal stasis within the colon. Appendix: The appendix is not definitively visualized. However, no pericecal inflammatory change is identified suggest the presence of acute appendicitis. Vasculature: Unremarkable. Lymph nodes: Limited evaluation without intravenous contrast. Pelvic structures: The bladder is minimally distended, and demonstrates prolapse below the pelvic floor. The uterus is either surgically absent or markedly atrophic. Body wall and musculoskeletal: Diffuse bony demineralization within the visualized osseous structures. Significant degenerative disease within the lumbosacral spine with osteophyte formation, disc space n arrowing, endplate changes and vacuum phenomena. Grade 2 retrolisthesis of L5 onto S1 is present. Possible distal coccygeal fracture is detected with surrounding callus formation. IMPRESSION: Bladder prolapse. Possible distal coccygeal fracture with surrounding callus formation. Reviewed, dictated and finalized at location A.
== END 2024-11-21 14:56 | disposition home or self-care (01) ==
LOC: GOSHIMG 14:57
PROVIDERS: Visit Provider Student in an Organized Health Care Education/Training Program
DX: R59.0 Localized enlarged lymph nodes (principal); K46.9 Unspecified abdominal hernia without obstruction or gangrene; N81.10 Cystocele, unspecified
CPT/HCPCS: 70490; 74176

== ENCOUNTER 2025-03-21 15:24 | Outpatient (CLI) | payer MEDICARE, SELFPAY ==
--- OUTSIDE RECORDS SUMMARY | 2025-03-21 15:28 | XMS_ITS | Encounter Summary ---
Author Organization [facility] Address [address] Kumar: Epic Prelude [place]T [place] [address] Care Team Providers Care Binder And Wrapper Packer Name Role Phone Perri Cabrera MD Primary Care Provider [phone] Encounter Details Date Type Department Care Team (Late st Contact Info) Description 09/03/1991 Outpatient Historical Basilio Hernandes Social History Tobacco Use Types Packs/Day Years Used Date Smoking Tobacco: Never Assessed Comments Unknown Sex and Gender Information Value Date Recorded Sex Assigned at Not on file Legal Sex Female 4:53 AM DIGITAL PRINT OPERATOR Gender Identity Not on file Sexual Orientation Not on file documented as of this encounter Plan of Treatment Not on file documented as of this encounter Visit Diagnoses Not on filedocumented in this encounter Care Teams Binder And Wrapper Packer Relationship Specialty Start Date End Date Perri Cabrera MD PCP - General Family Practice 04/01/12 documented as of this encounter
--- OUTSIDE RECORDS SUMMARY | 2025-03-21 15:28 | XMS_ITS | Encounter Summary ---
Author Organization [facility] Address [address] [place] [address] Care Team Providers Care Certified Pesticide Applicator Name Role Phone Perri Cabrera MD Primary Care Provider [phone] Encounter Details Date Type Department Care Team (Late st Contact Info) Description 08/22/2001 Outpatient Historical HIS MRI DEPT Gurvinder Chapa MD [address] [facility] [address] [place] [address] DIPLOPIA (Primary Dx) Social History Tobacco Use Types Packs/Day Years Used Date Smoking Tobacco: Never Assessed Comments Unknown Sex and Gender Information Value Date Recorded Sex Assigned at Not on file Legal Sex Female 4:53 AM MARKET DEVELOPMENT TRAINER Gender Identity Not on file Sexual Orientation Not on file documented as of this encounter Plan of Treatment Not on file documented as of this encounter Visit Diagnoses Diagnosis Diplopia- Primary documented in this encounter Care Teams Certified Pesticide Applicator Relationship Specialty Start Date End Date Perri Cabrera MD PCP - General Family Practice 04/01/12 documented as of this encounter
--- OUTSIDE RECORDS SUMMARY | 2025-03-21 15:28 | XMS_ITS | Clinical Summary ---
Author Organization 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 3 Atrial flutter [...] Encounters Date Type Department Care Team Description 03/13/2025 Anticoagulation Telephone Call [facility] Cardiology [address] [place] [address] Advanced Medicine 8th [place] [address] [place] [address] Toni Wills MD Atrial flutter, unspecified type (HCC) (Primary Dx) 03/13/2025 Orders Only [facility] Scanning, Provider 03/12/2025 Telephone [facility] Cardiology [address] [place] [address] Advanced Medicine 8th [place] [address] [place] [address] Toni Wills MD 03/12/2025 Telephone [facility] Cardiology [address] [place] [address] Advanced Medicine 8th [place] [address] [place] [address] Toni Wills MD 02/20/2025 Telephone [facility] Cardiology [address] [place] [address] Advanced Medicine 8th [place] [address] [place] [address] Toni Wills MD Anticoagulation 02/15/2025 Anticoagulation Telephone Call [facility] Cardiology [address] [facility] Medical Office Building [address] [place] [address] Toni Wills MD Atrial flutter, unspecified type (HCC) (Primary Dx) 02/14/2025 Telephone [facility] Cardiology [address] [facility] 8th [place] [address] [place] [address] Toni Wills MD 02/14/2025 Telephone [facility] Cardiology [address] [facility] 8th [place] [address] [place] [address] Toni Wills MD 02/14/2025 Orders Only [facility] Scanning, Provider 01/10/2025 Telephone [facility] Cardiology [address] 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 Not on file Not [...] 36.7 C (98 F) 08/16/2023 6:00 AM BUGGY MAN Respiratory Rate 17 08/16/2023 12:30 PM BUGGY MAN Oxygen Saturation 95% 12/17/2024 1:38 PM CDT [...] Date/Time Associated Diagnosis Comments SCAN - LABS 03/13/2025 PROTIME-INR Routine 03/07/2025 SCAN - LABS 02/14/2025 PROTIME-INR Routine 02/13/2025 COLONOSCOPY 07/06/2018 1:00 PM BUGGY MAN from Last 3 Months or Most Recently Relevant to Health Maintenance Results * SCAN - LABS (03/13/2025) us Provider Scanning Final Result * (ABNORMAL) Protime-INR (03/07/2025) INR 1.30(A) 0.90 - 1.10 EXTERNAL LAB Blood 03/07/2025 Historical Provider LAB BLOOD ORDERABLES Susan l Result EXTERNAL LAB * SCAN - LABS (02/14/2025) us Provider Scanning Final Result * (ABNORMAL) Protime-INR (02/13/2025) INR 5.90(A) 0.90 - 1.10 EXTERNAL LAB Blood 02/13/2025 Historical Provider LAB BLOOD ORDERABLES Susan l Result EXTERNAL LAB * COLONOSCOPY (07/06/2018 1:00 PM BUGGY MAN) Anatomical Region Laterality Modality Other Narrative Procedure Note Manan Mascorro MD - 07/06/2018 1:00 PM CST ENDOSCOPY LAB Patient Name: Rossy Shaver Procedure Date: 07/06/2018 1:00 PM Date of : 1945 Admit Type: Outpatient Age: 72 Gender: Female Attending MD: Manan Mascorro M.D. Room: [place] [address] Note Status: Addendum Procedure Date No Time: [...] the physician, the nurse,the anesthesiologist and the ditching machine engineer in thepre-procedure area in the procedure room. [...] Thescope was passed under direct vision. The [id number] introduced through the anus and advanced to the thececum, identified by the ileocecal valve. The colonoscopy was performed with moderate difficulty due to inadequatebowel prep. The patient tolerated the procedure well. The quality of the bowel preparation was evaluated usingthe BBPS ([place] Bowel Preparation Scale) with scores of: Right [...] Recently Relevant to Health Maintenance Insurance MEDICARE BLUE CROSS MEDICARE SUPPLEMENT MEDICARE [facility] Member Subscriber Plan / Payer (Ef fective 2018-Present) Name:Rossy Shaver Relation to Subscriber:Self Name:ROSSY SHAVER Payer ID:[id number] (NAIC) Type:[facility] Address: [address] MEDICARE [facility] MEDICARE [facility] Advance Directives For more information, please contact: [phone] * Full Code (Latest Code Status on File) Date Activated Date Inactivated Comments 07/07/2018 12:04 PM 07/18/2018 5:53 PM * Full Code Date Activated Date Inactivated Comments 07/06/2018 12:17 PM 07/06/2018 5:14 PM Care Teams Injection Molding Machine Operator Relationship Specialty Start Date End Date Perri Cabrera MD PCP - General 10/06/16
--- OUTSIDE RECORDS SUMMARY | 2025-03-21 15:28 | XMS_ITS | Encounter Summary ---
Author Organization [facility] Address [address] [place] [address] Phone Care Team Providers Care Levee Superintendent Name Role Phone Perri Cabrera MD Primary Care Provider + Encounter Details Date Type Department Care Team (Latest Contact Info) Description 02/23/2024 Anticoagulation Visit [facility] Cardiology [address] [facility] Medical Office Building [address] [place] [address] Toni Wills MD [address] [address] Atrial flutter, unspecified type (HCC) [...] on file Legal Sex Female 6:39 AM JEWELRY SALES Gender Identity Not on file Sexual Orientation Not on file Occupation Industry Job Start Date Job End Date Retired Not on file Not on file 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
--- OUTSIDE RECORDS SUMMARY | 2025-03-21 15:28 | XMS_ITS | Encounter Summary ---
Author Organization [facility] Address [address] [place] [address] Care Team Providers Care Maintenance Fitter Name Role Phone Perri Cabrera MD Primary Care Provider [phone] Encounter Details Date Type Department Care Team (Latest Contact Info) Description 07/28/2001 Outpatient Historical [facility] Gurvinder Cisse MD [address] [facility] [address] [facility] [address] [place] [address] TRANSIENT CEREBRAL ISCHEMIA NOS (Primary Dx) Social History Tobacco Use Types Packs/Day Years Used Date Smoking Tobacco: Never Assessed Comments Unknown Sex and Gender Information Value Date Recorded Sex Assigned at Not on file Legal Sex Female 4:53 AM RN INTERN Gender Identity Not on file Sexual Orientation Not on file documented as of this encounter Plan of Treatment Not on file documented as of this encounter Visit Diagnoses Diagnosis Unspecified transient cerebral ischemia- Primary documented in this encounter Care Teams Maintenance Fitter Relationship Specialty Start Date End Date Perri Cabrera MD PCP - General Family Practice 04/01/12 documented as of this encounter
--- OUTSIDE RECORDS SUMMARY | 2025-03-21 15:28 | XMS_ITS | Encounter Summary ---
Author Organization [facility] Address [address] [place] [address] Phone Care Team Providers Care Demo Coordinator Name Role Phone Perri Cabrera MD Primary Care Provider + Encounter Details Date Type Department Care Team (Late st Contact Info) Description 07/04/[address] [facility] Cardiology [address] [place] [address] [place] [address] Guadalupe Campbell MD [address] [place] [address] Social History Tobacco Use Types Packs/Day Years Used Date Smoking Tobacco: Never Smokeless Tobacco: Never Alcohol Use Standard Drinks/Week Comments No 0 (1 standard drink = 0.6 oz pur e alcohol) Comments No Sex and Gender Information Value Date Recorded Sex Assigned at Not on file Legal Sex Female 6:39 AM ENGINEERING PROGRAM ANALYST Gender Identity Not on file Sexual Orientation Not on file Occupation Industry Job Start Date Job End Date Retired Not on file 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
--- OUTSIDE RECORDS SUMMARY | 2025-03-21 15:28 | XMS_ITS | Encounter Summary ---
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
--- OUTSIDE RECORDS SUMMARY | 2025-03-21 15:28 | XMS_ITS | Clinical Summary ---
Author Organization [employer] [facility] Address [address] [place] [address] Care Team Providers Care Radio Despatcher Name Role Phone Perri Cabrera MD Primary Care Provider [phone] Source Comments [facility],non-owned Affiliates and Associated Physician Practices is amultiple site organization consisting of ambulatory clinics and hospital sitesin [place], [place], [place] and [place]. This disclosure is being madepursuant to the Care Everywhere program and may not contain all information available regarding this patient. 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 Not on file Not on file Last Filed Vital Signs Vital Sign Reading Time Taken Comments Blood Pressure 158/95 09/25/2012 1:24 PM DUMPER BAILER OPERATOR Pulse 97 09/25/2012 1:24 PM DUMPER BAILER OPERATOR Temperature 36.8 C (98.3 F) 09/25/2012 9:58 AM DUMPER BAILER OPERATOR Respiratory Rate 20 09/25/2012 9:58 AM DUMPER BAILER OPERATOR Oxygen Saturation 98% 09/25/2012 1:24 PM DUMPER BAILER OPERATOR Inhaled Oxygen Concentration - - Weight 102.1 kg (225 lb) 09/25/2012 9:58 AM DUMPER BAILER OPERATOR Height 167.6 cm (5' 6) 09/25/2012 9:58 AM DUMPER BAILER OPERATOR Body Mass Index 36.32 09/25/2012 9:58 AM DUMPER BAILER OPERATOR Plan of Treatment Health Maintenance Due Date [...] season) 2024 DEPRESSION SCREENING 08/08/2024 INFLUENZA VACCINE (#1) 2025 HEPATITIS B VACCINE Aged Out No [...] age to complete this topic Insurance MEDICARE [facility] Care Teams Radio Despatcher Relationship Specialty Start Date End Date Perri Cabrera MD [address] [place] [address] PCP - General 09/22/12
--- OUTSIDE RECORDS SUMMARY | 2025-03-21 15:28 | XMS_ITS | Encounter Summary ---
Author Organization [facility] Address [address] [place] [address] Phone Care Team Providers Care Biochemistry Specialist Name Role Phone Perri Cabrera MD Primary Care Provider + Encounter Details Date Type Department Care Team (Late st Contact Info) Description 08/11/2018 Telephone [facility] Cardiology [facility] [facility] [address] [place] [address] [place] [address] Erica Quintanilla, MPH Social History Tobacco Use Types Packs/Day Years Used Date Smoking Tobacco: Never Smokeless Tobacco: Never Alcohol Use Standard Drinks/Week Comments No 0 (1 standard drink = 0.6 oz pur e alcohol) Comments No Sex and Gender Information Value Date Recorded Sex Assigned at Not on file Legal Sex Female 6:39 AM CHEMICAL TECHNICIAN Gender Identity Not on file Sexual Orientation Not on file Occupation Industry Job Start Date Job End Date Retired Not on file Not on file 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
--- OUTSIDE RECORDS SUMMARY | 2025-03-21 15:28 | XMS_ITS | Clinical Summary ---
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
--- OUTSIDE RECORDS SUMMARY | 2025-03-21 15:28 | XMS_ITS | Encounter Summary ---
Author Organization [facility] Address [address] 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
--- OUTSIDE RECORDS SUMMARY | 2025-03-21 15:28 | XMS_ITS | Encounter Summary ---
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
--- OUTSIDE RECORDS SUMMARY | 2025-03-21 15:28 | XMS_ITS | Encounter Summary ---
Author Organization [id number] Address [address] [place] [address] Care Team Providers Care Electorate Officer Name Role Phone Perri Cabrera MD Primary Care Provider [phone] Encounter Details Date Type Department Care Team (Late st Contact Info) Description 07/28/2001 Outpatient Historical Division of Neurology [address] 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
--- OUTSIDE RECORDS SUMMARY | 2025-03-21 15:28 | XMS_ITS | Encounter Summary ---
Author Organization [facility] Address [address] [place] [address] Phone Care Team Providers Care Patient Liaison Name Role Phone Perri Cabrera MD Primary Care Provider + Encounter Details Date Type Department Care Team (Late st Contact Info) Description 03/12/2025 [address]phone [facility] Cardiology [address] 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 [facility] PCP is Perri Cabrera documented in this encounter Plan of Treatment Not on file documented as of this encounter Visit Diagnoses Not on filedocumented in this encounter Care Teams Patient Liaison Relationship Specialty Start Date End Date Perri Cabrera MD PCP - General 10/06/16 documented as of this encounter
[2025-03-21 18:39] LABS: Add Urine Microscopic? YES; Appearance Urine Clear (Clear); Glucose Urine UA Negative (Negative); Leukocyte Esterase Ur 3+ LEU/UL (Negative); Nitrate Urine Negative (Negative); Specific Grav Ur 1.014 (1.001-1.035)
[2025-03-21 19:03] LABS: INR 2.6; Prothrombin Time 27.4 Seconds (11.1-14.7)
== END 2025-03-21 15:25 | disposition home or self-care (01) ==
PROVIDERS: PCP Family Medicine; Visit Provider Family Medicine
DX: R30.0 Dysuria (principal); I48.91 Unspecified atrial fibrillation; Z79.01 Long term (current) use of anticoagulants
CPT/HCPCS: 36415; 81001; 85610

== ENCOUNTER 2025-05-02 14:56 | Outpatient (RCR) | payer MEDICARE, SELFPAY ==
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
--- OUTSIDE RECORDS SUMMARY | 2025-02-13 14:37 | XMS_ITS | Clinical Summary ---
Author Organization [employer] [facility] [employer] Address [address] [place] [address] Care Team Providers Care Mentally Impaired Teacher Name Role Phone Perri Cabrera MD Primary Care Provider [phone] Source Comments [facility],non-owned Affiliates and Associated Physician Practices is amultiple site organization consisting of ambulatory clinics and hospital sitesin [place], [place], [place] and [place]. This disclosure is being madepursuant to the Care Everywhere program and may not contain all information available regarding this patient. Last updated 18.[facility] Allergies No known active allergies Medications * [...] on file Legal Sex Female 10:49 AM ORACLE SOLUTIONS ARCHITECT Gender Identity Not on file Sexual Orientation Not on file Occupation Industry Job Start Date Job End Date [employer] Not on file Not on file Not on file Last Filed Vital Signs Vital Sign Reading Time Taken Comments Blood Pressure 158/95 09/25/2012 1:24 PM ORACLE SOLUTIONS ARCHITECT Pulse 97 09/25/2012 1:24 PM ORACLE SOLUTIONS ARCHITECT Temperature 36.8 C (98.3 F) 09/25/2012 9:58 AM ORACLE SOLUTIONS ARCHITECT Respiratory Rate 20 09/25/2012 9:58 AM ORACLE SOLUTIONS ARCHITECT Oxygen Saturation 98% 09/25/2012 1:24 PM ORACLE SOLUTIONS ARCHITECT Inhaled Oxygen Concentration - - Weight 102.1 kg (225 lb) 09/25/2012 9:58 AM ORACLE SOLUTIONS ARCHITECT Height 167.6 cm (5' 6) 09/25/2012 9:58 AM ORACLE SOLUTIONS ARCHITECT Body Mass Index 36.32 09/25/2012 9:58 AM ORACLE SOLUTIONS ARCHITECT Plan of Treatment Health Maintenance Due Date Last Done Comments BONE DENSITY TESTING 1945 HEPATITIS C SCREENING 11/09/1964 DTAP/TDAP/TD VACCINES [...] age to complete this topic Insurance MEDICARE [facility] Care Teams Mentally Impaired Teacher Relationship Specialty Start Date End Date Perri Cabrera MD [address] [place] [address] PCP - General 09/22/12
--- OUTSIDE RECORDS SUMMARY | 2025-02-13 14:37 | XMS_ITS | Encounter Summary ---
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
--- OUTSIDE RECORDS SUMMARY | 2025-02-13 14:37 | XMS_ITS | Clinical Summary ---
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 8 Bronchial asthma [...] on file Legal Sex Female 4:53 AM FERRY OPERATOR Gender Identity Not on file Sexual [...] 12:40 PM CDT Height 167.6 cm (5' 6) 04/01/2012 12:40 PM CDT Body Mass Index 35.51 04/01/2012 12:40 PM CDT Plan of Treatment Health Maintenance Due Date Last Done Comments DTAP/TDAP/TD VACCINES (1 - Tdap) 1964 PNEUMOCOCCAL VACCINE 50+ YEARS (1 of 2 - PCV) 11/14/18 67 ZOSTER VACCINE (1 of 2) 1996 OSTEOPOROSIS SCREENING 11/15/2011 RSV VACCINE (60+ or ) (1 - 1-dose 75+ series) 2021 INFLUENZA VACCINE (#1) 2025 Insurance MEDICARE PART A AND B [employer] PPO Advance Directives For more information, please contact: [phone] * Full Code (Latest Code Status on File) Date Activated Date Inactivated Comments 04/04/2018 10:59 AM 04/08/2018 6:25 PM Care Teams Sheriffs Detective Relationship Specialty Start Date End Date Perri Cabrera MD PCP - General Family Practice 04/01/12
--- OUTSIDE RECORDS SUMMARY | 2025-02-13 14:37 | XMS_ITS | Encounter Summary ---
Author Organization [facility] Address [address] [place] [address] Phone Care Team Providers Care Poured Concrete Wall Technician Name Role Phone Perri Cabrera MD Primary Care Provider + Encounter Details Date Type Department Care Team (Latest Contact Info) Description 02/23/2024 Anticoagulation Visit [facility] Card[facility] [address] [facility] Medical Office [address] [place] [address] Toni Wills MD [address] [address] Atrial flutter, unspecified type (HCC) [...] on file Legal Sex Female 6:39 AM CHAIN DYER Gender Identity Not on file Sexual Orientation Not on file Occupation Industry Job Start Date Job End Date Retired Not on file 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
--- OUTSIDE RECORDS SUMMARY | 2025-02-13 14:37 | XMS_ITS | Referral Summary ---
Author Organization [facility] Address [address] [place] [address] Care Team Providers Care Hand Iii Cutter Name Role Phone Perri Cabrera MD Primary Care Provider + Encounters Date Type Department Care Team Description 01/10/2025 Telephone [facility] Cardiology [facility] Medicine 8th [place] [address] [place] [address] Shannon Perez 12/18/2024 Telephone [facility] Cardiology [address] [place] [address] 8th [place] [address] [place] [address] Eileen Costello NP 12/17/2024 1:30 PM CDT Office Visit [facility] Cardiology [facility] Medical Office Building [address] [place] [phone] Eileen Costello NP Paroxysmal atrial fibrillation (HCC) (Primary Dx); Chronic hypertension; Dyslipidemia; Dyslipidemia (high LDL; low HDL) 11/22/2024 Anticoagulation Telephone Call [facility] Cardiology [facility] Medicine 8th [place] [address] [place] [phone] Toni Wills MD Atrial flutter, unspecified type (HCC) (Primary Dx) 11/22/2024 Orders Only [facility] Scanning, Provider from Last 3 Months Allergies Active Allergy [...] (06/21/2018): Added automatically from request for surgery [id number] Adnexal cyst 05/23/2018 Overview (05/23/2018): Added automatically from request for surgery [id number] Mass of uterine adnexa 05/23/2018 Overview (08/23/2018): Added automatically from request for surgery [id number] Overview: 04/04/[address] Scan result, extending [...] home. 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 Not on file Not on file Last Filed Vital Signs Vital Sign Reading Time Taken Comments Blood Pressure 98/52 12/17/2024 1:38 PM CDT Pulse 73 12/17/2024 1:38 PM CDT Temperature 36.7 C (98 F) 08/16/2023 6:00 AM MILITARY COMMUNICATIONS SPECIALIST Respiratory Rate 17 08/16/2023 12:30 PM MILITARY COMMUNICATIONS SPECIALIST Oxygen Saturation 95% 12/17/2024 1:38 PM CDT Inhaled Oxygen Concentration - - Weight 64.9 kg (143 lb) 12/17/2024 1:38 PM CDT Height 165.1 cm (5' 5) 12/17/2024 1:38 PM CDT Body Mass Index 23.8 12/17/2024 1:38 PM CDT Plan of Treatment Not on file Procedures Procedure Name Priority Date/Time Associated Diagnosis Comments PROTIME-INR Routine 11/22/2024 SCAN - LABS 11/22/2024 COLONOSCOPY 07/06/2018 1:00 PM MILITARY COMMUNICATIONS SPECIALIST from Last 3 Months or Most Recently Relevant to Health Maintenance Results * SCAN - LABS (11/22/2024) us Provider Scanning Final Result * (ABNORMAL) Protime-INR (11/22/2024) INR 2.30(A) 0.90 - 1.10 EXTERNAL LAB Blood us Historical Provider LAB BLOOD ORDERABLES Susan boswell Result EXTERNAL LAB * COLONOSCOPY (07/06/2018 1:00 PM MILITARY COMMUNICATIONS SPECIALIST) Anatomical Region Laterality Modality Other Narrative Procedure Note Manan Mascorro MD - 07/06/2018 1:00 PM CST ENDOSCOPY LAB Patient Name: Rossy Shaver Procedure Date: 07/06/2018 1:00 PM Date of : 1945 Admit Type: Outpatient Age: 72 Gender: Female Attending MD: Manan Mascorro M.D. Room: [place] [address] Note Status: Addendum Procedure Date No Time: [...] the physician, the nurse,the anesthesiologist and the aluminum molder in thepre-procedure area in the procedure room. [...] Thescope was passed under direct vision. The [id number] introduced through the anus and advanced to the thececum, identified by the ileocecal valve. The colonoscopy was performed with moderate difficulty due to inadequatebowel prep. The patient tolerated the procedure well. The quality of the bowel preparation was evaluated usingthe BBPS ([place] Bowel Preparation Scale) with scores of: Right [...] Recently Relevant to Health Maintenance Insurance MEDICARE [facility] BLUE CROSS MEDICARE SUPPLEMENT MEDICARE BLUE [facility] MEDICARE [facility] MEDICARE [place] [employer] [facility] Member Subscriber Plan / Payer (Ef fective 2011-Present) Name:Rossy Shaver Relation to Subscriber:Self Name:Rossy Shaver Payer ID:[id number] (NAIC) Type: OTHER Address: [address] [place] [id number] MEDICARE [place]UE [employer] [place] Advance Directives For more information, please contact: [phone] * Full Code (Latest Code Status on File) Date Activated Date Inactivated Comments 07/07/2018 12:04 PM 07/18/2018 5:53 PM * Full Code Date Activated Date Inactivated Comments 07/06/2018 12:17 PM 07/06/2018 5:14 PM Care Teams Hand Iii Cutter Relationship Specialty Start Date End Date Perri Cabrera MD PCP - General 10/06/16
--- OUTSIDE RECORDS SUMMARY | 2025-02-13 14:38 | XMS_ITS | Encounter Summary ---
Author Organization [facility] Address [address] [place] [address] Phone Care Team Providers Care Volunteer Assistant Name Role Phone Perri Cabrera MD Primary Care Provider + Encounter Details Date Type Department Care Team (Late st Contact Info) Description 08/11/2018 Telephone [facility] Cardiology [facility] Advanced Medicine 8th [place] [address] [place] [address] Erica Quintanilla, MPH Social History Tobacco Use Types Packs/Day Years Used Date Smoking Tobacco: Never Smokeless Tobacco: Never Alcohol Use Standard Drinks/Week Comments No 0 (1 standard drink = 0.6 oz pur e alcohol) Comments No Sex and Gender Information Value Date Recorded Sex Assigned at Not on file Legal Sex Female 6:39 AM INDUSTRIAL PROPERTY 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
--- OUTSIDE RECORDS SUMMARY | 2025-02-13 14:38 | XMS_ITS | Encounter Summary ---
Author Organization [facility] Address [address] [place] [address] Care Team Providers Care Lag Screwer Name Role Phone Perri Cabrera MD Primary Care Provider [phone] Encounter Details Date Type Department Care Team (Late st Contact Info) Description 08/22/2001 Outpatient Historical [facility] MRI DEPT Gurvinder Chapa MD [address] [facility] [address] [place] [phone] DIPLOPIA (Primary Dx) Social History Tobacco Use Types Packs/Day Years Used Date Smoking Tobacco: Never Assessed Comments Unknown Sex and Gender Information Value Date Recorded Sex Assigned at Not on file Legal Sex Female 4:53 AM HANDLE ASSEMBLER Gender Identity Not on file Sexual Orientation Not on file documented as of this encounter Plan of Treatment Not on file documented as of this encounter Visit Diagnoses Diagnosis Diplopia- Primary documented in this encounter Care Teams Lag Screwer Relationship Specialty Start Date End Date Perri Cabrera MD PCP - General Family Practice 04/01/12 documented as of this encounter
--- OUTSIDE RECORDS SUMMARY | 2025-02-13 14:38 | XMS_ITS | Encounter Summary ---
Author Organization [facility] Address [address] [place] [address] Phone Care Team Providers Care Online Trader Name Role Phone Perri Cabrera MD Primary Care Provider + Encounter Details Date Type Department Care Team (Late st Contact Info) Description 07/04/2019 Telephone [facility] Cardiology [address] [facility] Advanced Medicine 8th [place] [address] [place] [address] Guadalupe Campbell MD [address] [place] [address] Social History Tobacco Use Types Packs/Day Years Used Date Smoking Tobacco: Never Smokeless Tobacco: Never Alcohol Use Standard Drinks/Week Comments No 0 (1 standard drink = 0.6 oz pur e alcohol) Comments No Sex and Gender Information Value Date Recorded Sex Assigned at Not on file Legal Sex Female 6:39 AM MANAGER ENTRY Gender Identity Not on file Sexual Orientation Not on file Occupation Industry Job Start Date Job End Date Retired Not on file 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
--- OUTSIDE RECORDS SUMMARY | 2025-02-13 14:38 | XMS_ITS | Encounter Summary ---
Author Organization [facility] Address [address] [place] [address] Care Team Providers Care Supervisor Mechanic Boilermaking Name Role Phone Perri Cabrera MD Primary Care Provider [phone] Encounter Details Date Type Department Care Team (Late st Contact Info) Description 07/28/2001 Outpatient Historical Division of Neurology [address] [facility] [address] Gurvinder Chapa MD [address] [facility] [facility] [place] [address] Social History Tobacco Use Types Packs/Day Years Used Date Smoking Tobacco: Never Assessed Comments Unknown Sex and Gender Information Value Date Recorded Sex Assigned at Not on file Legal Sex Female 4:53 AM DROP FORGE OPERATOR Gender Identity Not on file Sexual Orientation Not on file documented as of this encounter Plan of Treatment Not on file documented as of this encounter Visit Diagnoses Not on filedocumented in this encounter Care Teams Supervisor Mechanic Boilermaking Relationship Specialty Start Date End Date Perri Cabrera MD PCP - General Family Practice 04/01/12 documented as of this encounter
--- OUTSIDE RECORDS SUMMARY | 2025-02-13 14:38 | XMS_ITS | Encounter Summary ---
Author Organization [facility] Address [address] Kumar: Epic Prelude [place]T [place] [address] Care Team Providers Care Prosthodontist/Owner Name Role Phone Perri Cabrera MD Primary Care Provider [phone] Encounter Details Date Type Department Care Team (Late st Contact Info) Description 09/03/1991 Outpatient Historical [facility] Hernandes Social History Tobacco Use Types Packs/Day Years Used Date Smoking Tobacco: Never Assessed Comments Unknown Sex and Gender Information Value Date Recorded Sex Assigned at Not on file Legal Sex Female 4:53 AM BRAZING FURNACE OPERATOR Gender Identity Not on file Sexual Orientation Not on file documented as of this encounter Plan of Treatment Not on file documented as of this encounter Visit Diagnoses Not on filedocumented in this encounter Care Teams Prosthodontist/Owner Relationship Specialty Start Date End Date Perri Cabrera MD PCP - General Family Practice 04/01/12 documented as of this encounter
--- OUTSIDE RECORDS SUMMARY | 2025-02-13 14:38 | XMS_ITS | Encounter Summary ---
Author Organization [facility] Address [address] Kumar: Epic Prelude [place]T [place] [address] Care Team Providers Care Staff Climate Scientist Name Role Phone Perri Cabrera MD Primary Care Provider [phone] Encounter Details Date Type Department Care Team (Late st Contact Info) Description 03/15/1990 Outpatient Historical Basilio Hernandes Social History Tobacco Use Types Packs/Day Years Used Date Smoking Tobacco: Never Assessed Comments Unknown Sex and Gender Information Value Date Recorded Sex Assigned at Not on file Legal Sex Female 4:53 AM BUILDING SERVICES ENGINEER Gender Identity Not on file Sexual Orientation Not on file documented as of this encounter Plan of Treatment Not on file documented as of this encounter Visit Diagnoses Not on filedocumented in this encounter Care Teams Staff Climate Scientist Relationship Specialty Start Date End Date Perri Cabrera MD PCP - General Family Practice 04/01/12 documented as of this encounter
--- OUTSIDE RECORDS SUMMARY | 2025-02-13 14:38 | XMS_ITS | Encounter Summary ---
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
--- OUTSIDE RECORDS SUMMARY | 2025-02-13 14:38 | XMS_ITS | Encounter Summary ---
Author Organization [facility] Address [address] [place] [address] Care Team Providers Care Store Stock Associate Name Role Phone Perri Cabrera MD Primary Care Provider [phone] Encounter Details Date Type Department Care Team (Latest Contact Info) Description 07/28/2001 Outpatient Historical [facility] Gurvinder Cisse MD [address] [facility] [address] [place] [address] TRANSIENT CEREBRAL ISCHEMIA NOS (Primary Dx) Social History Tobacco Use Types Packs/Day Years Used Date Smoking Tobacco: Never Assessed Comments Unknown Sex and Gender Information Value Date Recorded Sex Assigned at Not on file Legal Sex Female 4:53 AM FRONT END ARCHITECT Gender Identity Not on file Sexual Orientation Not on file documented as of this encounter Plan of Treatment Not on file documented as of this encounter Visit Diagnoses Diagnosis Unspecified transient cerebral ischemia- Primary documented in this encounter Care Teams Store Stock Associate Relationship Specialty Start Date End Date Perri Cabrera MD PCP - General Family Practice 04/01/12 documented as of this encounter
[2025-02-13 19:58] LABS: Prothrombin Time 49.9 Seconds (11.1-14.7)
[2025-02-13 22:02] LABS: INR 5.9
[2025-03-07 19:12] LABS: INR 1.3; Prothrombin Time 16.3 Seconds (11.1-14.7)
[2025-04-09 15:40] LABS: INR 3.9; Prothrombin Time 36.7 Seconds (11.1-14.7)
[2025-05-02 17:24] LABS: INR 4.7; Prothrombin Time 42.8 Seconds (11.1-14.7)
== END 2025-05-14 23:59 | disposition home or self-care (01) ==
LOC: ANHGOSHLAB 14:56
PROVIDERS: Family Medicine; PCP Family Medicine
DX: Z51.81 Encounter for therapeutic drug level monitoring (principal); I48.92 Unspecified atrial flutter; Z79.01 Long term (current) use of anticoagulants
CPT/HCPCS: 36415; 85610